=== PATIENT | male | born 1960 | race Caucasian/White ===

== ENCOUNTER 2024-03-07 13:32 | Emergency (ER) | payer OTHER, SELFPAY ==
--- NOTE | ~2024-03-07 | CT_ITS ---
History: Left temporal headache PROCEDURE: CT head without contrast. COMPARISON: None TECHNIQUE: Axial imaging of the head performed from the skull base to the vertex without IV contrast. Sagittal a nd coronal reformations obtained. DLP: 681 mGy-cm FINDINGS: The ventricles are normal in size, shape and position. There is no mass, mass effect or midline shift. There is no abnormal extra-axial fluid collection or intracranial hemorrhage. Visualized paranasal sinuses are clear. The mastoid air cells are well aerated. No acute displaced fractures within the overlying cranium. Impression: No acute intracranial hemorrhage or suspicious mass effect. Reviewed, dictated and finalized at location A. SWARE ENGRAVER Impression: No acute intracranial hemorrhage or suspicious mass effect.
[2024-03-07 13:43] VITALS: BP 132/82; PULSE 89; RESP 16; TEMP 36.7; O2SAT 97
--- NOTE | 2024-03-07 14:55 | PC.NURSE ---
Pt. refusing a hospital gown at this time.
--- NOTE | 2024-03-07 14:59 | ED_ITS ---
HPI - Headache General Chief Complaint: Headache Stated Complaint: HEADACHE-PATIENT HAS TEMPORAL ARTERITIS Time Seen by Provider: 03/07/24 14:47 Source: patient Mode of arrival: ambulatory Limitations: no limitations History of Present Illness HPI Narrative: Patient is a 63 y/o male who presents to the ED with c/o SQUIRES. Patient reports having a left-sided temporal headache for the last 5 days. States it is a very dull aching. Has been intermittent. Has not tried anything for the pain. States his sister is concerned he may have temporal arteritis. He denies previously being diagnosed with this. Denies significant other symptoms, dizziness, lightheadedness, nausea, vomiting, vision changes. Does admit to slight photophobia and phonophobia. Denies focal weakness or numbness. Denies syncope. Related Data Allergies Allergy/AdvReac Type Severity Reaction Status Date / Time Iodinated Contrast Media Allergy Intermediate Flushing Verified 03/07/24 13:35 Review of Systems 2 Review of Systems: All systems reviewed & are unremarkable except as noted in HPI. All systems reviewed & are unremarkable except as noted in HPI and below Exam 2 Narrative: GENERAL: Well appearing, obese with BMI of 33.5, non-toxic, in no acute distress. HEAD: Normocephalic, atraumatic. EYES: PERRL/EOMI, conjunctiva clear. No nystagmus NECK: Normal ROM, supple, no meningeal signs. RESPIRATORY: Airway patent, respirations nonlabored. Clear to auscultation bilaterally, no rales, rhonchi, wheezing. CARDIOVASCULAR: Regular rate and rhythm without murmurs, rubs, or gallops. MUSCULOSKELETAL: Moves all extremities. No gross deformities. SKIN: Warm, dry, normal color. NEURO: A&O X3. Speech clear. Cranial nerves II-XII grossly intact. Steady gait. No ataxic movements. Strength 5/5 in upper extremities bilaterally. No pronator drift. No focal deficits. PSYCHIATRIC: Appropriate mood and affect. Normal interaction. Course Vital Signs Vital signs: Vital Signs Temperature 98.0 F 03/07/24 13:43 Pulse Rate 89 03/07/24 13:43 Respiratory Rate 16 03/07/24 13:43 Blood Pressure 132/82 03/07/24 13:43 Pulse Oximetry 97 03/07/24 13:43 Oxygen Delivery Room Air 03/07/24 13:43 Temperature 98.0 F 03/07/24 13:43 Pulse Rate 62 03/07/24 17:27 Respiratory Rate 16 03/07/24 17:27 Blood Pressure 116/67 03/07/24 17:27 Pulse Oximetry 96 03/07/24 17:27 Oxygen Delivery Room Air 03/07/24 13:43 MDM - Headache MDM Narrative Medical decision making narrative: Patient presented to ED with 5 day history of left-sided temporal headache. Vital signs are stable upon arrival. Patient is in no acute distress. Neurologically intact. No focal deficits appreciated on exam. Patient states he is concerned for temporal arteritis. CT brain was obtained and negative. No intracranial pathology. Laboratory studies are otherwise unremarkable. Normal CRP. Normal ESR. Very low suspicion for temporal arteritis given findings. Patient given migraine cocktail in the ED. On re-evaluation, he is feeling improved. Discussed overall reassuring w/u. Feel he is safe for d/c home. Discussed continued management of headaches at home. Recommended close f/u with PCP for further evaluation. Given strict return precautions. He agrees with plan. Discharged in stable condition. Medical Records Attestation: I reviewed the patient's medical records. Lab Data Attestation: I reviewed the patient's lab results. 03/07/24 15:41 03/07/24 15:41 Labs: Lab Results 03/07/24 Range/Units 15:41 WBC 5.0 (4.5-10.0) K/mm3 RBC 4.98 (4.6-6.20) M/mm3 Hgb 16.1 (14.0-18.0) g/dL Hct 46.1 (42.0-52.0) % MCV 92.6 (80-100) fl MCH 32.3 (26-34) pg MCHC 34.9 (32-36) g/dl RDW 12.9 (11.5-14.5) % Plt Count 215 (150-375) k/mm3 MPV 10.7 H (7.4-10.4) fl Immature Gran % (Auto) 0.4 (0-0.5) % Neut % (Auto) 53.1 (45.5-73.1) % Lymph % (Auto) 37.1 (18.3-44.2) % Ness % (Auto) 7.6 (2.6-8.5) % Eos % (Auto) 1.4 (0-4.4) % Baso % (Auto) 0.4 (0.2-1.2) % Lymph # (Auto) 1.86 (0.9-3.2) K/mm3 Ness # (Auto) 0.4 (0.1-0.6) K/mm3 Eos # (Auto) 0.1 (0-0.3) K/mm3 Baso # (Auto) 0.0 (0.0-0.1) K/mm3 Abs Immat Gran (auto) 0.02 (0.00-0.031) K/mm3 Absolute Neuts (auto) 2.7 (1.3-6.7) K/mm3 Absolute Nucleated RBC 0.000 (0.0-0.012) K/mm3 Nucleated RBC % 0.0 (0.0-0.2) % ESR 8 (0-20) mm/hr Sodium 140 (137-145) mmol/L Potassium 3.7 (3.4-5.0) mmol/L Chloride 105 (98-107) mmol/L Carbon Dioxide 23 (22-30) mmol/L Anion Gap 12 (4-12) mmol/L BUN 16 (9-20) mg/dL Creatinine 0.71 (0.7-1.3) mg/dL Estim Creat Clear Calc 113 ml/min Estimated GFR > 60 (59 - ) Glucose 95 (65-110) mg/dL Calcium 9.2 (8.4-10.2) mg/dL Total Bilirubin 1.0 (0.2-1.3) mg/dL AST 25 (17-59) U/L ALT 23 (6-50) U/L Alkaline Phosphatase 59 (38-126) U/L C-Reactive Protein < 0.5 (<1.0) mg/dL Total Protein 8.0 (6.3-8.2) g/dL Albumin 4.7 (3.5-5.1) g/dL Imaging Data Attestation: I personally reviewed and interpreted this imaging study as follows: Radiologist's impression: ITS Impressions Head CT 03/07/24 15:59 Impression: No acute intracranial hemorrhage or suspicious mass effect. Discharge Plan Discharge Clinical Impression: Headache Qualifiers: Headache type: unspecified Headache chronicity pattern: acute headache I ntractability: not intractable Qualified Code(s): R51.9 - Headache, unspecified Patient Disposition: Home, Self-Care Condition: Stable Instructions: Antibiotic Form, Temporal Arteritis (ED), Acute Headache (ED) Additional Instructions: Your workup here was reassuring. Follow-up with your primary care doctor for further evaluation. Continue Tylenol and ibuprofen as needed for pain. Get plenty of rest. Stay well hydrated. Recommend low light/ low stimulus environment, limiting screen time. Return to the ED if you experience worsening or severe pain, severe dizziness, vision changes, unable to keep down food or drink, numbness or weakness of arm or leg, or any other symptoms of concern. Patient Language: [place] Follow-up/Referrals: PHYSICIAN NOT ON STAFF,NONSTAFF [Non-Staff] - Time of Disposition: 17:47
[2024-03-07] MEDS: ACETAMINOPHEN 500 MG TABLET 1000 MG PO (15:30)
[2024-03-07] MEDS: METOCLOPRAMIDE HCL INJ 10 MG/2 ML VIAL IV PUSH (15:31)
[2024-03-07] MEDS: diphenhydrAMINE HCl INJ 50 MG/ML VIAL 25 MG IV PUSH (15:31)
[2024-03-07] MEDS: SODIUM CHLORIDE 0.9% IV 1,000 ML 999 ML IV CONT (15:32)
[2024-03-07 15:57] LABS: Basophils Percent Auto 0.4 % (0.2-1.2); Eosinophils Absolute Auto 0.1 K/mm3 (0-0.3); Eosinophils Percent Auto 1.4 % (0-4.4); Hematocrit 46.1 % (42.0-52.0); Hemoglobin 16.1 g/dL (14.0-18.0); Immature Granulocyte Absolute 0.02 K/mm3 (0.00-0.031); Immature Granulocyte Percent A 0.4 % (0-0.5); Lymphocytes Absolute Auto 1.86 K/mm3 (0.9-3.2); Lymphocytes Percent Auto 37.1 % (18.3-44.2); Mean Corpuscular HGB Conc 34.9 g/dl (32-36); Mean Corpuscular Hemoglobin 32.3 pg (26-34); Mean Corpuscular Volume 92.6 fl (80-100); Mean Platelet Volume 10.7 fl (7.4-10.4); Monocytes Absolute Auto 0.4 K/mm3 (0.1-0.6); Monocytes Percent Auto 7.6 % (2.6-8.5); Neutrophils Absolute Auto 2.7 K/mm3 (1.3-6.7); Neutrophils Percent Auto 53.1 % (45.5-73.1); Platelet Count Result 215 k/mm3 (150-375); Red Blood Count 4.98 M/mm3 (4.6-6.20); Red Cell Distribution Width 12.9 % (11.5-14.5)
[2024-03-07 16:22] VITALS: BP 101/64; PULSE 64; RESP 16; O2SAT 94
[2024-03-07 16:22] LABS: Alanine Aminotransferase 23 U/L (6-50); Albumin Level 4.7 g/dL (3.5-5.1); Alkaline Phosphatase 59 U/L (38-126); Anion Gap 12 mmol/L (4-12); Aspartate Amino Transferase 25 U/L (17-59); Blood Urea Nitrogen 16 mg/dL (9-20); CRP < 0.5 mg/dL (<1.0); Calcium 9.2 mg/dL (8.4-10.2); Carbon Dioxide 23 mmol/L (22-30); Chloride 105 mmol/L (98-107); Estimated CRCL calculation 113 ml/min; Estimated Glomerular Filt Rate > 60; Glucose 95 mg/dL (65-110); Potassium 3.7 mmol/L (3.4-5.0); Sodium 140 mmol/L (137-145)
[2024-03-07 16:32] LABS: Erythrocyte Sedimentation Rate 8 mm/hr (0-20)
[2024-03-07] MEDS: dexAMETHasone SOD PHOS INJ 10 MG/ML 1 ML VIAL IV PUSH (16:49)
[2024-03-07] MEDS: KETOROLAC 30 MG/ML VIAL (*BKC) IV PUSH (16:49)
[2024-03-07 17:27] VITALS: BP 116/67; PULSE 62; RESP 16; O2SAT 96
[2024-03-07 18:00] VITALS: BP 114/74; PULSE 74; RESP 16; TEMP 36.6; O2SAT 100
--- OUTSIDE RECORDS SUMMARY | 2024-03-09 01:17 | XMS_ITS | Referral Summary ---
Author Organization [facility] [place] [address] [place] [address] Phone Care Team Providers Care Restaurant Shift Supervisor Name Role Phone Chang Cifuentes OD Unavailable [phone] Alpesh De Leon MD Unavailable [phone] Charli Holder MD Unavailable [phone] Cristhian Oliveros MD Unavailable [phone] Clemencia Tovar MD Primary Care Provider Allergies Active Allergy Reactions Criticality Noted Date Comments Iodine Flushing (skin) Low 10/20/2018 Medications ENTRESTO 24-26 mg tabletIndication s:chronic heart failure Take 1 tablet by mouth 2 (two) times a day 11 9 Active torsemide (DEMADEX) 20 mg tabletIndication s:Edema Take 1 tablet (20 mg total) by mouth daily 3 9 Active multivitamin-Ca- iron-minerals tabletIndication s:Vitamin Deficiency Prevention Take 1 tablet by mouth ammunition storekeeper before breakfast Active NON FORMULARY, FOR CLINIC ADMINISTERED MEDICATIONS ONLY, (not in database) Take 1 each by mouth once Gamma E Active carvediloL (COREG) 12.5 mg tabletIndication s:hypertension Take 1 tablet (12.5 mg total) by mouth 2 (two) times a day 0 Active potassium chloride ER 20 mEq CR tablet Take 2 tablets (40 mEq total) by mouth ammunition storekeeper before breakfast 0 Active sildenafiL (VIAGRA) 100 mg tablet Take 1 tablet (100 mg total) by mouth daily as needed 2 Active ergocalciferol (VITAMIN D) 50,000 unit capsuleIndicatio ns:Vitamin D deficiency Take 1 capsule (50,000 Units total) by mouth once a week TAKE 1 CAPSULE ONCE A WEEK FOR 12 WEEKS, THEN FOLLOW UP WITH YOUR PCP. 12 capsule 2 Active Additional Information Patient not taking.Informant: Self, Reported on 01/31/[address] (CYMBALTA) 60 mg capsuleIndicatio ns:pain Take 1 capsule (60 mg total) by mouth ammunition storekeeper before breakfast 2 Active acetaminophen 500 mg capsuleIndicatio ns:Pain Take 2 capsules (1,000 mg total) by mouth every 8 (eight) hours 90 tablet 3 Active aspirin 81 mg enteric coated tabletIndication s:Deep Vein Thrombosis Prevention Take 1 tablet (81 mg total) by mouth 2 (two) times a day 60 tablet 3 Active meloxicam (MOBIC) 7.5 mg tablet Take 1 tablet (7.5 mg total) by mouth daily 30 tablet 3 Active Additional Information Patient not taking.Reported on 09/26/2023 senna-docusate (PERICOLACE) 8.6-50 mgIndications:co nstipation Take 2 tablets by mouth 2 (two) times a day 60 tablet 3 Active Additional Information Patient not taking.Reported on 09/26/2023 pregabalin (LYRICA) 75 mg capsule Take 1 capsule (75 mg total) by mouth 2 (two) times a day for 14 days 28 capsule 3 Active Additional Information Patient not taking.Reported on 01/31/2023 traMADoL (ULTRAM) 50 mg tablet Take 1 tablet (50 mg total) by mouth every 8 (eight) hours as needed for pain 42 tablet 3 Active oxyCODONE (ROXICODONE) 5 mg immediate release tabletIndication s:Pain Take 1 tablet (5 mg total) by mouth every 4 (four) hours as needed (breakthrough pain) 30 tablet 3 Active Additional Information Patient not taking.Reported on 05/14/2022 atorvastatin (LIPITOR) 40 mg tablet Take 1 tablet (40 mg total) by mouth daily for 90 days 3 Active azithromycin (ZITHROMAX) 250 mg tablet Active furosemide (LASIX) 40 mg tablet Take 1 tablet (40 mg total) by mouth daily 4 Active cephalexin (KEFLEX) 500 mg capsule Active HYDROcodone-acet aminophen (NORCO) 5-325 mg per tablet Active levothyroxine (SYNTHROID) 175 mcg tablet Take 1 tablet (175 mcg total) by mouth daily 90 tablet 3 4 05/23/19 25 Active empagliflozin (JARDIANCE) 10 mg tablet 1 tablet (10 mg total) daily Active Active Problems Problem Noted Date Diagnosed Date Encounter for screening colonoscopy 10/05/2023 Personal history of colonic polyps 10/05/2023 Primary osteoarthritis of left knee 01/27/2022 Overview (01/27/2022): Added automatically from request for surgery [id number] Retinal scar of left eye 10/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 10/22/2021 Age-related nuclear cataract of both eyes 2021 Screen for colon cancer 03/10/2020 Overview (03/10/2020): Added automatically from request for surgery [id number] Family history of colon cancer 03/10/2020 Overview (03/10/2020): Added automatically from request for surgery [id number] Abuse of dietary supplements 03/10/2020 Overview (03/10/2020): Following supplements should be eliminated if you will possibly consider that March 10, 2020 DHEA L glutamine L arginine Gamma E complex Lactobacillus Amino 1000 Calcium citrate Probiotic 50 A triple magnesium powder Super enzymes Milk thistle extract Ascorbic acid vitamin-C Allowed supple months = multi vitamin, fish oil he states is advised by his women's ministry director, Co Q10 Hx of colonic polyps 03/10/2020 Overview (03/12/2020): Added automatically from request for surgery [id number] Hx of adenomatous colonic polyps 03/08/2020 Overview (03/08/2020): (+) Dr. 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 Thakur, [facility] Retinal tear, left 10/22/2018 Overview (10/22/2018): Status post (s/p) laser retinopexy OS 10/21/18 Assessment & Plan (11/09/2018 12:55 PM CDT): With associated vitreous hemorrhage which is clearing nicely Tears well barricaded with laser retinal detachment (RD) precautions reviewed Follow up [place] with Dr. Cruz 2 months Assessment & Plan (10/22/2018 1:13 PM CDT): Two breaks at 3 o clock with VH, surrounded 360 by laser. Anterior lesion not redemonstrated on exam today, remainder of retina attached 360 OU. Inferior retinal view poor 2/2 VH but with no breaks on prior B scan. Will monitor closely given poor visualization. Seen with Dr. Leyva. RT/RD precautions discussed with patient. Keep HOBE. Repeat DFE/TOPPER PRESS OPERATOR 11/01 in [facility] retina. Coronavirus infection 03/21/2018 Overview (02/06/2020): Hospitalized in [facility] with kidney failure heart failure intestinal blockage loss of consciousness related to this virus Immunizations Name Administration Dates Next Due Pneumococcal Polysaccharide PPV23 02/06/2020 Tdap 02/06/2020 Social History Tobacco Use Types Packs/Day Years Used Date Smoking Tobacco: Never Smokeless Tobacco: Former Snuff Quit: 02/23/2011 Tobacco Cessation:Counseling Given: Not Answered Alcohol Use Standard Drinks/Week Comments Yes 0 (1 standard drink = 0.6 oz pur e alcohol) occassional wine AUDIT-C Answer Date Recorded Q1: How often do you have a drink containing alc ohol? Monthly or less 03/09/2022 Average Number of Drinks Not on file 023 Frequency of Binge Drinking Not on file 02/15 Personal Safety Answer Date Recorded Getting School Help Needed Denies 01/29 Sex and Gender Information Value Date Recorded Sex Assigned at Not on file Legal Sex Male 7:53 PM EARLY CHILDHOOD EDUCATION SPECIALIST Gender Identity Not on file Sexual Orientation Straight 03/03/2020 9: 48 AM EARLY CHILDHOOD EDUCATION SPECIALIST Occupation Industry Job Start Date Job End Date semi retired Not on file Not on file Not on file Last Filed Vital Signs Vital Sign Reading Time Taken Comments Blood Pressure 104/63 09/26/2023 1:38 PM CDT Pulse 76 09/26/2023 1:38 PM CDT Temperature 36.6 ??C (97.8 ??F) 09/26/2023 1:38 PM CD T Respiratory Rate 18 03/10/2022 8:53 AM EARLY CHILDHOOD EDUCATION SPECIALIST Oxygen Saturation 97% 03/10/2022 8:53 AM EARLY CHILDHOOD EDUCATION SPECIALIST Inhaled Oxygen Concentration - - Weight 112.9 kg (249 lb) 09/26/2023 1:38 PM CDT Height 180.3 cm (5' 11 ) 09/26/2023 1:38 PM CDT Body Mass Index 34.73 09/26/2023 1:38 PM CDT Plan of Treatment Upcoming Encounters Date Type Department Care Team (Late st Contact Info) Description 03/28/2024 12:35 PM EARLY CHILDHOOD EDUCATION SPECIALIST Hospital Encounter [address] [address] Frank Walter MD [address] [facility] [place] [address] 03/28/2024 12:35 PM EARLY CHILDHOOD EDUCATION SPECIALIST - 03/28/2024 1:05 PM EARLY CHILDHOOD EDUCATION SPECIALIST Surgery [address] [address] Frank Walter MD [address] [facility] [place] [address] COLONOSCOPY Scheduled Procedures Name Priority Associated Diagnoses Date/Ti me COLONOSCOPY Encounter for screening colonoscopy Personal history of colonic polyps Family history of colon cancer 03/28/2024 12:35 PM EARLY CHILDHOOD EDUCATION SPECIALIST Medical Devices Implanted Type Area Occ Therapist Device Identifier Shelf Expiration Date Model / Serial / Lot [employer] Attune Cruciate Retain Cementless Knee Left 6 Component Femoral [id number] - [id number] Implanted:Qty: 1 on 03/09/2022 by Srinivas Walker MD at [facility] [employer] [id number] 08/13/2030 [id number] / / [id number] [employer] Attune Fb Tib Base Sz 6 Por [id number] - [id number] Implanted:Qty: 1 on 03/09/2022 by Srinivas Walker MD at [facility] Left: Knee [employer] 10/15/2031 [id number] / / [id number] [employer] Insert Attune Left Medial Stabilized Size 6 5mm [id number] - [id number] Implanted:Qty: 1 on 03/09/2022 by Srinivas Wakler MD at [facility] Left: Knee [employer] 09/13/2029 [id number] / / [id number] Procedures Procedure Name Priority Date/Time Associated Diagnosis Comments COLONOSCOPY 01/25/2022 7:46 AM EARLY CHILDHOOD EDUCATION SPECIALIST PSA SCREEN Routine 03/03/2020 10:54 AM EARLY CHILDHOOD EDUCATION SPECIALIST Prostate cancer screening from Last 3 Months or Most Recently Relevant to Health Maintenance Results * COLONOSCOPY (01/25/2022 7:46 AM EARLY CHILDHOOD EDUCATION SPECIALIST) Anatomical Region Laterality Modality Other Narrative Procedure Note Frank Walter MD - 01/25/2022 7:46 AM [facility] Patient Name: Yonathan Joseph Procedure Date: 01/25/2022 7:46 AM Date of : 1960 Admit Type: Outpatient Age: 61 Gender: Male Attending MD: Frank Walter M.D. [facility] 1 Note Status: Finalized Patient Profile: This is a 61 year old male. History of multiple adenoma polyps. His brother had colon cancer. Procedure: Colonoscopy Indications: Screening in patient at increased risk: Familyhistory of 1st-degree relative with colorectal cancer, Surveillance: History of numerous (> 10) adenomason last colonoscopy (< 3 yrs), Last colonoscopy: May 2020 Referring MD: Clemencia Tovar M.D. Providers: Frank Walter M.D. Impression: - The entire examined colon is normal. - Internal hemorrhoids. - No specimens collected. Recommendation: - Repeat colonoscopy in 2 years for surveillance. - Continue present medications. Medicines: Monitored Anesthesia Care Complications: No immediate complications. Estimated Blood Loss: Estimated blood loss: none. Procedure: Pre-Anesthesia Assessment: - Prior to the procedure, a History and Physicalwas performed, and patient medications and allergieswere reviewed. The patient's tolerance of previous anesthesia was also reviewed. The risks andbenefits of the procedure and the sedation options and risks were discussed with the patient. All questions were answered, and informed consent was obtained. Prior Anticoagulants: The patient has taken noanticoagulant or antiplatelet agents. ASA Grade Assessment: III -A patient with severe systemic disease. Afterreviewing the risks and benefits, the patient was deemed in satisfactory condition to undergo the procedure. The benefits, risks and alternatives of theprocedure and sedation were discussed and informed consentwas obtained. All questions were answered. Please referto the signed informed consent document in the medical record. The bowel preparation used was Miralax and bisacodyl tablets via split dose instruction. The scope was passed under direct vision. The Pediatric Colonoscope [id number]-[id number] was introducedthrough the anus and advanced to the the cecum, identifiedby appendiceal orifice and ileocecal valve. Thequality of the bowel preparation was good. Bowel prep was administered using a split dose. Findings: The perianal and digital rectal examinations were normal. The cecum appeared normal. The colon (entire examined portion) appeared normal. No polyps and no mass lesions noted. Internal hemorrhoids were found during retroflexion. The hemorrhoids were small. Electronically signed by Frank Walter M.D. Frank aWlter M.D. 01/25/2022 9:52:17 AM Number of Addenda: 0 Note Initiated On: 01/25/2022 7:46 AM Procedure Code(s): --- Professional --- 69507, Colonoscopy, flexible; diagnostic, including collection of specimen(s) by brushing or washing, when performed (separateprocedure) Diagnosis Code(s): --- Professional --- Z80.0, Family history of malignant neoplasm of digestive organs Z86.010, Personal history of colonic polyps K64.8, Other hemorrhoids CPT copyright 2020 [employer]. All rights reserved. The codes documented in this report are preliminary and upon tool and die maker level five reviewmay be revised to meet current compliance requirements. Recognized by the [employer] for promoting quality in endoscopy us Frank Walter MD ENDOSCOPY PROCEDURES Final Result * PSA screen (03/03/2020 10:54 AM EARLY CHILDHOOD EDUCATION SPECIALIST) PSA-Total 0.76 <=3.90 ng/mL SMITA GUILLERMO Comment: Interpretive Data ?AGE ? SEX ?REFERENCE INTERVAL 0 minutes-150 years ?Female ?None 0 minutes-49 years ? Male ?None ? 50-59 years ? Male ?0-3.90 ? 60-69 years ? Male ?0-5.40 ? 70-79 years ? Male ?0-6.20 ? 80-150 years ?Male ?0-6.20 Current interpretive data last revised 2018. Blood specimen (specimen) 03/03/2020 10:54 AM EARLY CHILDHOOD EDUCATION SPECIALIST 03/03/2020 6:40 PM EARLY CHILDHOOD EDUCATION SPECIALIST us Anastasiya Mueller MD LAB BLOOD ORDERABLES Final Result Performing Organization Address City/State/[facility] Co de Phone Number SMITA GUILLERMO [address] Department [place] [address] from Last 3 Months or Most Recently Relevant to Health Maintenance Insurance [employer] WILLIE [address] [place] HMO REF [place] [id number] MEDICARE SOLUTIONS Advance Directives For more information, please contact: [phone] Documents on File Type Date Recorded Patient Manipulator Operator Expl anation ADVANCE DIRECTIVE 02/06/2020 POWER OF A [employer] * Full Code (Latest Code Status on File) Date Activated Date Inactivated Comments 03/09/2022 2:17 PM 03/10/2022 5:04 PM * Full Code Date Activated Date Inactivated Comments 01/25/2022 8:07 AM 01/25/2022 2:37 PM * Full Code Date Activated Date Inactivated Comments 01/25/2022 8:07 AM 01/25/2022 8:07 AM * Full Code Date Activated Date Inactivated Comments 06/02/2020 11:45 AM 06/02/2020 6:56 PM Care Teams Restaurant Shift Supervisor Relationship Specialty Start Date End Date Clemencia Tovar MD [address] [place] [address] [address] EN[address] [place], [place] [address] [address] PCP - General Internal Medicine 03/05/21 Chang Cifuentes, OD Referring Physician Supervisor Dried Yeast 10/20/18 Alpesh De Leon MD [address] [place] [address] [address] EN[address] [place] [id number] Referring Physician Cardiovascular Disease 03/20/18 Charli Holder MD [address] ENRI[address] [place] [id number] Surgeon Orthopedic Surgery 02/06/20 Cristhian Oliveros MD [address] [place] [address] [address] [place] [address] Referring Physician Cardiothoracic Surgery 02/06/20
--- OUTSIDE RECORDS SUMMARY | 2024-03-09 01:17 | XMS_ITS | Encounter Summary ---
[facility] [address] [place] [address] Phone Care Team Providers Care Fire Claims Adjuster Name Role Phone No, Physician Primary Care Provider Anastasiya Mueller MD Primary Care Provider [phone] No, Physician Unavailable Chang Cifuentes OD Unavailable [phone] Alpesh De Leon MD Unavailable [phone] Charli Holder MD Unavailable [phone] Cristhian Oliveros MD Unavailable [phone] Clemencia Tovar MD Primary Care Provider [phone] Encounter Details Date Type Department Care Team (Late st Contact Info) Description 02/25/2017 Orders Only [facility] [address] [place] [address] Scanning, Provider Social History Tobacco Use Types Packs/Day Years Used Date Smoking Tobacco: Never Assessed Sex and Gender Information Value Date Recorded Sex Assigned at Not on file Legal Sex Male 7:53 PM MATTING PRESS TENDER Gender Identity Not on file Sexual Orientation Straight 03/03/2020 9: 48 AM MATTING PRESS TENDER documented as of this encounter Plan of Treatment Upcoming Encounters Date Type Department Care Team (Late st Contact Info) Description 03/28/2024 12:35 PM MATTING PRESS TENDER Hospital Encounter [facility] [address] [place] [address] Frank Walter MD [address] [place] [id number] 03/28/2024 12:35 PM MATTING PRESS TENDER - 03/28/2024 1:05 PM MATTING PRESS TENDER Surgery [facility] [address] [place] [address] Frank Walter MD [address] [place] [address] [address] [place] [address] COLONOSCOPY Scheduled Procedures Name Priority Associated Diagnoses Date/Ti me COLONOSCOPY Encounter for screening colonoscopy Personal history of colonic polyps Family history of colon cancer 03/28/2024 12:35 PM MATTING PRESS TENDER documented as of this encounter Procedures Procedure Name Priority Date/Time Associated Diagnosis Comments GI - RESULT 02/25/2017 documented in this encounter Results * GI - RESULT (02/25/2017) Anatomical Region Laterality Modality Other us Provider Scanning Final Result documented in this encounter Visit Diagnoses Not on filedocumented in this encounter Care Teams Fire Claims Adjuster Relationship Specialty Start Date End Date No, Physician PCP - General 10/20/18 12/19/19 Anastasiya Mueller MD PCP - General Internal Medicine 12/20/19 03/04/21 Clemencia Tovar MD [address] [place] [address] DR [address] [facility] [place] [address] PCP - General Internal Medicine 03/05/21 No, Physician 12/20/19 02/05/20 Chang Cifuentes, RUKHSANA Referring Physician Water Plant Pump Operator 10/20/18 Alpesh De Leon MD [address] [place] [address] MARY MARTINEZ [id number] Referring Physician Cardiovascular Disease 03/20/18 Charli Holder MD [address] [place] [id number] Surgeon Orthopedic Surgery 02/06/20 Cristhian Oliveros MD [address] [place] [id number] Referring Physician Cardiothoracic Surgery 02/06/20 documented as of this encounter
--- OUTSIDE RECORDS SUMMARY | 2024-03-09 01:17 | XMS_ITS | Clinical Summary ---
Author Organization [facility] Address [address] [place] [address] Phone Care Team Providers Care Clinical Account Manager Name Role Phone PATRICK ALBA DO [phone] Reason for Visit and Chief Complaint The Chief Complaint is: pt is here after finding a tick on the lower right side of his back , was able to remove the whole tick but left a good size welp and he is wondering if he needs some abx Problems Includes: Problems addressed during this encounter and other active Problems No Active Problems Plan of Treatment - Return to the clinic if condition worsens or new symptoms arise - Last Documented On 06/06/2022 5:31PM ; [facility] - Go to the emergency room if condition worsens - Last Documented On 06/06/2022 5:31PM ; [facility] - Disposition Discussed etiology and course of atopic dermatitis. Discussed limiting bathing and using oily soaps. Also discussed need for lubrication of skin on a regular basis, with intermittent use of topical steroids or topical immune modulator creams - Last Documented On 06/06/2022 5:31PM ; [facility] - Follow-up visit as needed with an office visit. - Last Documented On 06/06/2022 5:31PM ; [facility] Instructions to patient Go to the emergency room if condition worsens Last Documented On 3 5:25PM ; [facility] Watch for signs/symptoms of infection, return to the clinic if seen Last Documented On 3 5:25PM ; [facility] Assessments Includes: Assessments from this encounter Findings - Cellulitis of the abdominal wall - Last Documented On 06/06/2022 5:31PM ; [facility] Instructions Includes: Instructions from this encounter Instructions to patient Go to the emergency room if condition worsens Last Documented On 3 5:25PM ; [facility] Watch for signs/symptoms of infection, return to the clinic if seen Last Documented On 3 5:25PM ; [facility] Medical Equipment - Implanted Devices Includes: Current Devices No Medical Equipment Recorded Medications Includes: Medications discussed during this encounter and other current Medications New / Renewed during this visit CATALINA NAJERA on 06/06/2022 Doxycycline Hyclate 100 MG Oral Capsule Provider: CATALINA NAJERA 14 day supply: 28 capsule, 0 refills Diagnosis: Cellulitis of trunk, unspecified 1 CAPSULE TWO TIMES A DAY [facility] [address] [place] [address], [id number] - Last Documented On 3 5:29PM By CATALINA NAJERA ; [facility] Medications Administered Includes: Administered Medications from this encounter No Administered Medications Recorded Vital Signs Includes: Vital Signs from this encounter Vital Name 06/06/2022 04:59P Blood Pressure Sitting (mmHg) 126/688 Pulse Rate-Sitting (bpm) 86 Temp-Oral (F) 98.4 Weight (lb) 245 Oxygen Saturation (%) 95 Last Documented: On 06/06/2022 5:01PM ; [facility] Results Includes: Results discussed during this encounter No Results Recorded For Specified Dates History of Present Illness Includes: History of Present Illness from this encounter PURNIMA BABB is a 61 year old male. Source of patient information was patient ? Allergy list reviewed ? Medication list reviewed ? Medication list reviewed - No fever - No chills - No headache - No sinus pain - No neck pain - No difficulty closing eye - No bilateral earache - No hoarseness - No sore throat - No feeling of tightness in the throat - No vomiting - No abdominal pain - No diarrhea - Red rash pt to clinic for a tick bite on the right side of abdomen he is not sure how long it had been on there states it was small his sister helped him pull it out Social History Description Last Updated Tobacco non-user 06/06/2022 Last Documented On 3 5:31PM ; [facility] Smoking Status Unknown Procedures and Surgical History Includes: Procedures from this encounter Procedures Code Diagnosis Performing Provider Service L ocation Service Date the options include close observation Last Documented On 3 5:25PM ; [facility] watch for signs/symptoms of infection, r eturn to the clinic if seen Last Documented On 3 5:25PM ; [facility] Pt to use prescription as ordered. Purpo se of and use of medication discussed.~ Last Documented On 3 5:25PM ; [facility] plan of care reviewed and agreed to by t he patient Last Documented On 3 5:24PM ; [facility] review of medications documented [id number] Last Documented On 3 5:01PM ; [facility] Clinical summary provided to patient Last Documented On 3 5:25PM ; [facility] Medical History Includes: Medical History addressed during this encounter No Medical History Recorded Family History Includes: Family History addressed during this encounter No Family History Recorded Review of Systems Includes: Review of Systems from this encounter Systemic: Generalized pain. No edema. Head: No headache. Eyes: No vision problems. Cardiovascular: No chest pain or discomfort. Pulmonary: No shortness of breath. Gastrointestinal: No nausea and no abdominal pain. Neurological: No dizziness and no ataxia. Psychological: No fear of falling. Skin: Red rash. Past Medical: No fall in the past 6 months. Mental Status Includes: Mental Status from this encounter No Mental Status Recorded Functional Status Includes: Functional Status from this encounter No Functional Status Recorded Physical Exam Includes: Physical Exam from this encounter Allergies Includes: Active Allergies No Known Allergies Encounters Encounter Provider Location Date Check-In Time Check-Out Time Diagnosis WALK IN PATIENT - ESTABLISHED PT CATALINA NAJERA [facility] 06/07/19 23 4:52PM 5:20PM Cellulitis of the Abdominal Wall Insurance Includes: Active Insurance Policies Plan Name Member ID Group # Subscriber Relationship Effect michel Dates 1 - [facility] [id number] TIARA Connors f Clinical Notes Includes: Clinical Notes from this encounter * Progress note Date Encounter Last Documented by 06/06/2022 WALK IN PATIENT - ESTABLISHED PT Last documented on 06/06/2022; 5:31 PM, CATALINA NAJERA; [facility] Active Problems & Conditions - No Active Problems Chief Complaint The Chief Complaint is: Pt is here after finding a tick on the lower right side of his back , was able to remove the whole tick but left a good size welp and he is wondering if he needs some abx. History of Present Illness TIARA BABB is a 61 year old male. Source of patient information was patient - Allergy list reviewed - Medication list reviewed - Medication list reviewed - No fever - No chills - No headache - No sinus pain - No neck pain - No difficulty closing eye - No bilateral earache - No hoarseness - No sore throat - No feeling of tightness in the throat - No vomiting - No abdominal pain - No diarrhea - Red rash pt to clinic for a tick bite on the right side of abdomen he is not sure how long it had been on there states it was small his sister helped him pull it out Social History Tobacco use: Tobacco non-user. Allergies - No Known Allergies Review Of Systems Systemic: Generalized pain. No edema. Head: No headache. Eyes: No vision problems. Cardiovascular: No chest pain or discomfort. Pulmonary: No shortness of breath. Gastrointestinal: No nausea and no abdominal pain. Neurological: No dizziness and no ataxia. Psychological: No fear of falling. Skin: Red rash. Past Medical: No fall in the past 6 months. Physical Findings - Vitals taken 06/06/2022 04:59 pm BP-Sitting 126/688 mmHg Pulse Rate-Sitting 86 bpm Temp-Oral 98.4 F Weight 245 lbs Oxygen Saturation 95 % General Appearance: - Alert. - Not acutely ill. Nose: General/bilateral: Discharge: - No nasal discharge. Lungs: - Clear to auscultation. Cardiovascular: Heart Sounds: - S1 normal. - S2 normal. Skin: - Showed erythema raised erythemic lesion to right trunk no drainage. Assessment - Cellulitis of the abdominal wall Therapy - The options include close observation. - Watch for signs/symptoms of infection, return to the clinic if seen. - Clinical summary provided to patient. - Plan of care reviewed and agreed to by the patient. Pt to use prescription as ordered. Purpose of and use of medication discussed. . Discussed Finish full prescription of antibiotics. Drink 8-8oz glasses of water a day. Tylenol or Motrin for pain/fever. If diarrhea develops please eat yogurt daily and BRAT diet Warm soaks to area twice a day. Plan StartCited - Cellulitis of trunk, unspecified Doxycycline Hyclate 100 MG capsule 1 CAPSULE TWO TIMES A DAY, 14 days, 0 refills EndCited - Return to the clinic if condition worsens or new symptoms arise - Go to the emergency room if condition worsens - Disposition Discussed etiology and course of atopic dermatitis. Discussed limiting bathing and using oily soaps. Also discussed need for lubrication of skin on a regular basis, with intermittent use of topical steroids or topical immune modulator creams - Follow-up visit as needed with an office visit. Practice Management Review of medications documented. Health Reminders - Assess Tobacco Use satisfied 06/06/2022.
--- OUTSIDE RECORDS SUMMARY | 2024-03-09 01:17 | XMS_ITS | Clinical Summary ---
Author Organization [facility] Address [address] [place] [address] Phone Care Team Providers Care Bale Opener Name Role Phone PATRICK ALBA DO [phone] Reason for Visit and Chief Complaint CONSULTATION - NEW PATIENT Problems Includes: Problems addressed during this encounter and other active Problems No Active Problems Plan of Treatment IV hydration RUQ sonogram - if normal would start full liquid diet and if tolerated advance. - Last Documented On 04/29/2022 10:07AM ; [facility] Assessments Includes: Assessments from this encounter Findings Acute Gastritis with dehydration. - Last Documented On 04/29/2022 10:07AM ; [facility] Medical Equipment - Implanted Devices Includes: Current Devices No Medical Equipment Recorded Medications Includes: Medications discussed during this encounter and other current Medications Current Medications (continue as prescribed) Doxycycline Hyclate 100 MG Oral Capsule 06/06/2022 Provider: CATALINA NAJERA Diagnosis: Cellulitis of tr unk, unspecified 1 CAPSULE TWO TIMES A DAY Last Documented On 3 5:29PM By CATALINA NAJERA ; [facility] Medications Administered Includes: Administered Medications from this encounter No Administered Medications Recorded Results Includes: Results discussed during this encounter No Results Recorded For Specified Dates History of Present Illness Includes: History of Present Illness from this encounter PURNIMA BABB is a 61 year old male. 61 year old male who presented to the ER last evening. He states that he was well yesterday morning and ate breakfast and went to the wellness center and worked out. After that, he went to [employer] and ate a day old hamburger. He subsequently developed severe diffuse abdominal pain associated with nausea and vomiting. He presented to the ER. A CT scan was done which was essentially unremarkable. His WBC was normal. He developed hypotension and was admitted for this. He is seen this AM in the ICU and has no complaints of abdominal pain and no further nausea. - No constipation. Social History No Social History Recorded - Smoking Status Unknown Procedures and Surgical History Includes: Procedures from this encounter Procedures Code Diagnosis Performing Provider Service L ocation Service Date reviewed CT scan of abdomen Reviewed with the radiologist Last Documented On 3 10:04AM ; [facility] Medical History Includes: Medical History addressed during this encounter No Medical History Recorded Family History Includes: Family History addressed during this encounter No Family History Recorded Review of Systems Includes: Review of Systems from this encounter Systemic: No fever and no chills. Cardiovascular: No chest pain or discomfort. Pulmonary: No dyspnea. Gastrointestinal: No anorexia. No dysphagia. Nausea. No jaundice and no hematochezia. No diarrhea. Genitourinary: No dysuria. Mental Status Includes: Mental Status from this encounter No Mental Status Recorded Functional Status Includes: Functional Status from this encounter No Functional Status Recorded Physical Exam Includes: Physical Exam from this encounter Allergies Includes: Active Allergies No Known Allergies Encounters Encounter Provider Location Date Check-In Time Check-Out Time Diagnosis CONSULTATION - NEW PATIENT ADELFO SANCHEZ DO [facility] 04/30/19 23 9:58AM 11:59PM Assessment [use For S.o.a.p. Note Free Text] Insurance Includes: Active Insurance Policies Plan Name Member ID Group # Subscriber Relationship Effect michel Dates 1 - [facility] [id number] TIARA BABB Dory f Clinical Notes Includes: Clinical Notes from this encounter * Progress note Date Encounter Last Documented by 04/29/2022 CONSULTATION - NEW PATIENT Last documented on 04/29/2022; 10:07 AM, ADELFO SANCHEZ DO; [facility] History of Present Illness TIARA BABB is a 61 year old male. 61 year old male who presented to the ER last evening. He states that he was well yesterday morning and ate breakfast and went to the wellness center and worked out. After that, he went to [employer] and ate a day old hamburger. He subsequently developed severe diffuse abdominal pain associated with nausea and vomiting. He presented to the ER. A CT scan was done which was essentially unremarkable. His WBC was normal. He developed hypotension and was admitted for this. He is seen this AM in the ICU and has no complaints of abdominal pain and no further nausea. - No constipation. Review Of Systems Systemic: No fever and no chills. Cardiovascular: No chest pain or discomfort. Pulmonary: No dyspnea. Gastrointestinal: No anorexia. No dysphagia. Nausea. No jaundice and no hematochezia. No diarrhea. Genitourinary: No dysuria. Physical Findings Standard Measurements: - Patient was observed to be obese. General Appearance: - Well developed. - In no acute distress. Lungs: - Clear to auscultation. Cardiovascular: Heart Rate And Rhythm: ? Normal. Abdomen: Auscultation: ? Bowel sounds were normal. Palpation: ? Abdominal non-tender. ? No mass was palpated in the abdomen. Tests Imaging: CT Scan Of Abdomen: Reviewed CT scan of abdomen Reviewed with the radiologist. Assessment Acute Gastritis with dehydration. Plan IV hydration RUQ sonogram - if normal would start full liquid diet and if tolerated advance.
--- OUTSIDE RECORDS SUMMARY | 2024-03-09 01:17 | XMS_ITS ---
Care Plan - [facility] Created on: March 09, 2024 TIARA BABB : 1960 Sex: Male Author Organization [facility] Address [address] [place] [address] Phone Care Team Providers Care Location Director Name Role Phone PATRICK ALBA DO [phone]
--- OUTSIDE RECORDS SUMMARY | 2024-03-09 01:17 | XMS_ITS | Clinical Summary ---
Author Organization [facility] [address] [place] [address] Phone Care Team Providers Care Military Pay Technician Name Role Phone Chang Cifuentes OD Unavailable [phone] Alpesh De Leon MD Unavailable [phone] Charli Holder MD Unavailable [phone] Cristhian Oliveros MD Unavailable [phone] Clemencia Tovar MD Primary Care Provider [phone] Allergies Active Allergy Reactions Criticality Noted Date Comments Iodine Flushing (skin) Low 10/20/2018 Medications ENTRESTO 24-26 mg tabletIndication s:chronic heart failure Take 1 tablet by mouth 2 (two) times a day 11 9 Active torsemide (DEMADEX) 20 mg tabletIndication s:Edema Take 1 tablet (20 mg total) by mouth daily 3 9 Active multivitamin-Ca- iron-minerals tabletIndication s:Vitamin Deficiency Prevention Take 1 tablet by mouth jewel supervisor before breakfast Active NON FORMULARY, FOR CLINIC ADMINISTERED MEDICATIONS ONLY, (not in database) Take 1 each by mouth once Gamma E Active carvediloL (COREG) 12.5 mg tabletIndication s:hypertension Take 1 tablet (12.5 mg total) by mouth 2 (two) times a day 0 Active potassium chloride ER 20 mEq CR tablet Take 2 tablets (40 mEq total) by mouth jewel supervisor before breakfast 0 Active sildenafiL (VIAGRA) 100 [...] 1 capsule (60 mg total) by mouth jewel supervisor before breakfast 2 Active acetaminophen 500 mg [...] (01/27/2022): Added automatically from request for surgery [id number] Retinal scar of left eye 10/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 10/22/2021 Age-related nuclear cataract of both eyes 2021 Screen for colon cancer 03/10/2020 Overview (03/10/2020): Added automatically from request for surgery [id number] Family history of colon cancer 03/10/2020 Overview (03/10/2020): Added automatically from request for surgery [id number] Abuse of dietary supplements 03/10/2020 Overview (03/10/2020): Following supplements should be eliminated if you will possibly consider that March 10, 2020 DHEA L glutamine L arginine Gamma E complex Lactobacillus Amino 1000 Calcium citrate Probiotic 50 A triple magnesium powder Super enzymes Milk thistle extract Ascorbic acid vitamin-C Allowed supple months = multi vitamin, fish oil 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 Smith in [facility] polyps x3 tubular adenoma due in 3 [...] thyroidectomy radiation therapy June 2015 Dr. Thakur, [facility] Retinal tear, left 10/22/2018 Overview (10/22/2018): Status [...] precautions discussed with patient. Keep HOBE. Repeat DFE/DIRECTOR DENTAL SERVICES 11/01 in [place]. Coronavirus infection 03/21/2018 Overview (02/06/2020): Hospitalized in [facility] with kidney failure heart failure intestinal blockage loss of consciousness related to this virus Immunizations Name Administration Dates Next Due Pneumococcal Polysaccharide PPV23 02/06/2020 Tdap 02/06/2020 Surgical History Surgery Date Site/Laterality Comments [facility] RETINAL DTCHMNT W/O DRG PHOTOCOAGULATION 10/21/2018 Retinal detachment surgery MENISCUS SURGERY 02/14/1990 - 03/16/[address] Holder CORONARY ARTERY BYPASS GRAFT 12/15/2018 - 01/13/2019 Dr. Glen Oliveros: Four-vessel bypass [facility] REPLACEMENT TOTAL HIP LATERA L POSITION 12/15/2013 - 01/13/[address] Stone, [facility] COLONOSCOPY 02/25/2017 (+) Dr. Smith in [facility] polyps x3 tubular adenoma due in 3 years RETINAL LASER PROCEDURE 10/21/2018 Left Olivier Cruz COLONOSCOPY 06/02/2020 (+) Dr. Walter polyps x5 tubular adenoma x4 recheck 1 year FLUORO GUIDED INJECTION SHOULDER RIGHT 10/12/2021 Right JOINT REPLACEMENT 12/28 Medical History Medical History Date Comments CHF (congestive heart failur e) (CMS/HCC) (HCC) Retinal tear, left 10/22/2018 Status post ( s/p) laser retinopexy OS 10/21/18 Cancer (CMS/HCC) (HCC) thyroid Thyroid disease Hypertension Myocardial infarction (HCC) Arthritis Heart disease Family History Medical History Relation Name Comments Cancer Brother 1 Omer Heart attack Brother 1 Omer Prostate cancer Brother 2 from he art attack due to cancer treatments Cancer Father Carter Liver cancer Father Carter Lung cancer Father Carter smoker Father Carter Diabetes Father's Sister Heart failure Mother Inez Hypertension Mother Inez smoker Mother Inez Colon cancer Paternal Grandfather No Known Problems Sister 1 ARDS Sister 2 staph infection Relation Name Status Comments Brother 1 Omer Alive Brother 2 Father Carter (Age 61) Father's Sister Mother Inez (Age 89) Paternal Grandfather Sister 1 Alive Sister 2 Social History Tobacco Use Types Packs/Day Years [...] on file Legal Sex Male 7:53 PM PSYCHIATRIC NP Gender Identity Not on file Sexual Orientation Straight 03/03/2020 9: 48 AM PSYCHIATRIC NP Occupation Industry Job Start Date Job End Date semi retired Not on file Not on file Not on file Obstetrics History Last Filed Vital Signs Vital Sign Reading Time Taken Comments Blood Pressure 104/63 09/26/2023 1:38 PM CDT Pulse 76 09/26/2023 1:38 PM CDT Temperature 36.6 ??C (97.8 ??F) 09/26/2023 1:38 PM CD T Respiratory Rate 18 03/10/2022 8:53 AM PSYCHIATRIC NP Oxygen Saturation 97% 03/10/2022 8:53 AM PSYCHIATRIC NP Inhaled Oxygen Concentration - - Weight 112.9 kg (249 lb) 09/26/2023 1:38 PM CDT Height 180.3 cm (5' 11 ) 09/26/2023 1:38 PM CDT Body Mass Index 34.73 09/26/2023 1:38 PM CDT Plan of Treatment Upcoming Encounters Date Type Department Care Team (Late st Contact Info) Description 03/28/2024 12:35 PM PSYCHIATRIC NP Hospital Encounter [address] [address] Frank Walter MD [address] [place] [address] [place] [address] 03/28/2024 12:35 PM PSYCHIATRIC NP - 03/28/2024 1:05 PM PSYCHIATRIC NP Surgery [address] [address] Frank Walter MD [address] [place] [address] [place] [address] COLONOSCOPY Scheduled Procedures Name Priority Associated Diagnoses Date/Ti me COLONOSCOPY Encounter for screening colonoscopy Personal history of colonic polyps Family history of colon cancer 03/28/2024 12:35 PM PSYCHIATRIC NP Health Maintenance Due Date Last Done Comments Depression Screening 1960 Hepatitis C Screening 1960 Hepatitis B Screening 12/07/1979 Regular Well Visit/Exam 18-64 12/07/1979 Zoster Vaccine (1 of 2) 12/07/2011 Pneumococcal vaccine <65 (2 of 2 - PCV) 02/05/2021 1 04/08/2019 Prostate Cancer Screening-PSA 03/03/2022 03/03/2020 Influenza Vaccine (#1) 2023 DTaP/Tdap/Td Vaccine (2 - Td or Tdap) 02/05/2030 Colon Cancer Screening-Colonoscopy 01/26/20322021, 06/02/2020 Colon Cancer Screening-CT Colonography Discontinued , 06/02/2020 Colon Cancer Screening-DNA Stool Discontinued 01/26/20 22, 06/02/2020 Colon Cancer Screening-FIT Discontinued 01/25/2022, Colon Cancer Screening-Sigmoidoscopy Discontinued 01/14, 06/02/2020 Medical Devices Implanted Type Area Career Technical Education Teacher Device Identifier Shelf Expiration Date Model / Serial / Lot [employer] Attune Cruciate Retain Cementless Knee Left 6 Component Femoral [id number] - [id number] Implanted:Qty: 1 on 03/09/2022 by Srinivas Walker MD at [facility] [employer] [id number] 08/13/2030 [id number] / / [id number] [employer] Attune Fb Tib Base Sz 6 Por [id number] - [id number] Implanted:Qty: 1 on 03/09/2022 by Srinivas Walker MD at [facility] Left: Knee [employer] 10/15/2031 [id number] / / [id number] [employer] Insert Attune Left Medial Stabilized Size 6 5mm [id number] - [id number] Implanted:Qty: 1 on 03/09/2022 by Srinivas Walker MD at [facility] Left: Knee [employer] 09/13/2029 [id number] / / [id number] Procedures Procedure Name Priority Date/Time Associated Diagnosis Comments COLONOSCOPY 01/25/2022 7:46 AM PSYCHIATRIC NP PSA SCREEN Routine 03/03/2020 10:54 AM PSYCHIATRIC NP Prostate cancer screening from Last 3 Months or Most Recently Relevant to Health Maintenance Results * COLONOSCOPY (01/25/2022 7:46 AM PSYCHIATRIC NP) Anatomical Region Laterality Modality Other Narrative Procedure Note Frank Walter MD - 01/25/2022 7:[address] [facility] Patient Name: Yonathan Joseph Procedure Date: 01/25/2022 7:46 AM Date of : 1960 Admit Type: Outpatient Age: 61 Gender: Male Attending MD: Frank Walter M.D. Room: [facility] ENDOSCOPY ROOM 1 Note Status: Finalized [...] under direct vision. The Pediatric Colonoscope [id number]-H190L [id number] was introducedthrough the anus and advanced to [...] Electronically signed by Frank Walter M.D. Frank Walter M.D. 01/25/2022 9:52:17 AM Number of Addenda: 0 Note Initiated On: 01/25/2022 7:46 AM Procedure Code(s): --- Professional --- 01035, Colonoscopy, flexible; diagnostic, including collection of specimen(s) by brushing or washing, when performed (separateprocedure) Diagnosis Code(s): --- Professional --- Z80.0, Family history of malignant neoplasm of digestive organs Z86.010, Personal history of colonic polyps K64.8, Other hemorrhoids CPT copyright 2020 [employer]. All rights reserved. The codes documented in this report are preliminary and upon bus matron reviewmay be revised to meet current compliance requirements. Recognized by the [employer] for promoting quality in endoscopy us Frank Walter MD ENDOSCOPY PROCEDURES Final Result * PSA screen (03/03/2020 10:54 AM PSYCHIATRIC NP) PSA-Total 0.76 <=3.90 ng/mL SM[facility] GUILLERMO Comment: Interpretive Data ?AGE ? SEX ?REFERENCE INTERVAL 0 minutes-150 years ?Female ?None 0 minutes-49 years ? Male ?None ? 50-59 years ? Male ?0-3.90 ? 60-69 years ? Male ?0-5.40 ? 70-79 years ? Male ?0-6.20 ? 80-150 years ?Male ?0-6.20 Current interpretive data last revised 2018. Blood specimen (specimen) 03/03/2020 10:54 AM PSYCHIATRIC NP 03/03/2020 6:40 PM PSYCHIATRIC NP us Anastasiya Mueller MD LAB BLOOD ORDERABLES Final Result SMITA GUILLERMO [address] Department [place] [address] from Last 3 Months or Most Recently Relevant to Health Maintenance Insurance [place] [id number] MED[employer]ARE SOLUTIONS [address] [place]CR HMO REF [place] [address] MEDICARE SOLUTIONS Advance Directives For more information, please contact: [phone] Documents on File Type Date Recorded Patient Leaf Stamper Expl anation ADVANCE DIRECTIVE 02/06/2020 POWER OF [...] 11:45 AM 06/02/2020 6:56 PM Care Teams Military Pay Technician Relationship Specialty Start Date End Date Clemencia Tovar MD [address] [place] [address] [address] [place] [address] PCP - General Internal Medicine 03/05/21 Chang Cifuentes, OD Referring Physician Batter Mixer Helper 10/20/18 Alpesh De Leon MD [address] [place] [address] [address] [place] [address] Referring Physician Cardiovascular Disease 03/20/18 Charli Holder MD [address] [place] [address] Surgeon Orthopedic Surgery 02/06/20 Cristhian Oliveros MD [address] [place] [address] [address] [place] [address] Referring Physician Cardiothoracic Surgery 02/06/20
--- OUTSIDE RECORDS SUMMARY | 2024-03-09 01:17 | XMS_ITS | Encounter Summary ---
Author Organization [facility] Address [address] [place] [address] Phone Care Team Providers Care Carbon Accountant Name Role Phone Anastasiya Mueller MD Primary Care Provider [phone] No, Physician Unavailable Chang Cifuentes OD Unavailable [phone] Alpesh De Leon MD Unavailable [phone] Charli Holder MD Unavailable [phone] Cristhian Oliveros MD Unavailable [phone] Clemencia Tovar MD Primary Care Provider [phone] Encounter Details Date Type Department Care Team (Late st Contact Info) Description 01/30/2020 Orders Only [facility] [address] [place] [address] Scanning, Provider Social History Tobacco Use Types Packs/Day Years Used Date Smoking Tobacco: Never Smokeless Tobacco: Never Alcohol Use Standard Drinks/Week Comments Not Currently 0 (1 standard drink = 0.6 oz pur e alcohol) Sex and Gender Information Value Date Recorded Sex Assigned at Not on file Legal Sex Male 7:53 PM PRIVACY OFFICER Gender Identity Not on file Sexual Orientation Straight 03/03/2020 9: 48 AM PRIVACY OFFICER documented as of this encounter Plan of Treatment Upcoming Encounters Date Type Department Care Team (Late st Contact Info) Description 03/28/2024 12:35 PM PRIVACY OFFICER Hospital Encounter [facility] 1 [place] [address] Frank Walter MD [address] [place] [address] [address] [place] [address] 03/28/2024 12:35 PM PRIVACY OFFICER - 03/28/2024 1:05 PM PRIVACY OFFICER Surgery [facility] 1 [place] [address] Frank Walter MD [address] [place] [address] [address] [place] [address] COLONOSCOPY Scheduled Procedures Name Priority Associated Diagnoses Date/Ti me COLONOSCOPY Encounter for screening colonoscopy Personal history of colonic polyps Family history of colon cancer 03/28/2024 12:35 PM PRIVACY OFFICER documented as of this encounter Procedures Procedure Name Priority Date/Time Associated Diagnosis Comments SCAN - LABS 01/30/2020 documented in this encounter Results * SCAN - LABS (01/30/2020) Provider Scanning Final Result documented in this encounter Visit Diagnoses Not on filedocumented in this encounter Care Teams Carbon Accountant Relationship Specialty Start Date End Date Anastasiya Mueller MD PCP - General Internal Medicine 12/20/19 03/04/21 Clemencia Tovar MD [address] [place] [address] [place] [address] PCP - General Internal Medicine 03/05/21 No, Physician 12/20/19 02/05/20 Chang Cifuentes, OD Referring Physician Mason Apprentice 10/20/18 Alpesh De Leon MD [address] [place] [address] [address] [address] Referring Physician Cardiovascular Disease 03/20/18 Charli Holder MD [address] [place] [address] Surgeon Orthopedic Surgery 02/06/20 Cristhian Oliveros MD [address] [place] [address] [place] [address] Referring Physician Cardiothoracic Surgery 02/06/20 documented as of this encounter
--- OUTSIDE RECORDS SUMMARY | 2024-03-09 01:17 | XMS_ITS ---
Author Organization [facility] Address [address] [place] [address] Phone Care Team Providers Care Director Of Global Marketing Name Role Phone PATRICK ALBA DO [phone] Problems Includes: Active, inactive, and resolved Problems No Active Problems Plan of Treatment Findings Encounter Date Go to the emergency room if condition worsens WALK IN PATIENT - ESTABLISHED PT with CATALINA ROJO [facility]- 06/06/2022 Last Documented On 3 5:31PM ; [facility] Ordered disposition Discusse d etiology and course of atopic dermatitis. Discussed limiting bathing and using oily soaps. Also discussed need for lubrication of skin on a regular basis, with intermittent use of topical steroids or topical immune modulator creams WALK IN PATIENT - ESTABLISHED PT with CATALINA ROJO [facility]- 06/06/2022 Last Documented On 3 5:31PM ; [facility] Ordered follow-up visit as n eeded with an office visit. WALK IN PATIENT - ESTABLISHED PT with CATALINA ROJO [facility]- 06/06/2022 Last Documented On 3 5:31PM ; [facility] Ordered return to the clinic if condition worsens or new symptoms arise WALK IN PATIENT - ESTABLISHED PT with CATALINA ROJO [facility]- 06/06/2022 Last Documented On 3 5:31PM ; [facility] IV hydration RUQ sonogram - if normal would start full liquid diet and if tolerated advance CONSULTATION - NEW PATIENT with ADELFO SANCHEZ DO 04/29/2022 Last Documented On 3 10:07AM ; [facility] Instructions to patient Go to the emergency room if condition worsens Last Documented On 3 5:25PM ; [facility] Watch for signs/symptoms of infection, return to the clinic if seen Last Documented On 3 5:25PM ; [facility] Assessments Includes: Assessments for all patient encounters Findings Encounter Date Cellulitis of the abdominal wall WALK IN PATIENT - ESTABLISHED PT with CATALINA NAJERA 06/06/2022 Last Documented On 3 5:31PM ; [facility] Acute Gastritis with dehydration CONSULT ATION - NEW PATIENT with ADELFO Briteny SANCHEZ DO 04/29/2022 Last Documented On 3 10:07AM ; [facility] Instructions Includes: Instructions for all patient encounters Instructions to patient Go to the emergency room if condition worsens Last Documented On 3 5:25PM ; [facility] Watch for signs/symptoms of infection, return to the clinic if seen Last Documented On 3 5:25PM ; [facility] Medical Equipment - Implanted Devices Includes: Current and historical Devices No Medical Equipment Recorded Medications Includes: Current and historical Medications Current Medications (continue as prescribed) Doxycycline Hyclate 100 MG Oral Capsule 06/06/2022 Provider: CATALINA NAJERA Diagnosis: Cellulitis of tr unk, unspecified 1 CAPSULE TWO TIMES A DAY Last Documented On 3 5:29PM By CATALINA NAJERA ; [facility] Medications Administered Includes: Administered Medications in patient's chart No Administered Medications Recorded Results Includes: Results from 03/09/2023 through 03/09/2024 No Results Recorded For Specified Dates History of Present Illness History of Present Illness not supported for this document type No History of Present Illness Recorded Social History Description Last Updated Tobacco non-user 06/06/2022 Last Documented On 3 5:31PM ; [facility] Smoking Status Unknown Medical History Includes: Medical History in patient's chart No Medical History Recorded Family History Includes: Family History in patient's chart No Family History Recorded Review of Systems Review of Systems not supported for this document type No Review of Systems Recorded Mental Status No Mental Status Recorded Functional Status No Functional Status Recorded Physical Exam Physical Exam not supported for this document type No Physical Exam Recorded Allergies Includes: Active, inactive, and resolved Allergies No Known Allergies Insurance Includes: Active Insurance Policies Plan Name Member ID Group # Subscriber Relationship Effect michel Dates 1 - [facility] [id number] TIARA ariza Clinical Notes Includes: Signed Clinical Notes starting from 03/05/2022 No Clinical Notes Recorded
--- OUTSIDE RECORDS SUMMARY | 2024-03-09 01:17 | XMS_ITS | Encounter Summary ---
Author [facility] Address [address] [place] [address] Phone Care Team Providers Care Die Cutter Diamond Name Role Phone No, Physician Primary Care Provider [phone] Anastasiya Mueller MD Primary Care Provider [phone] No, Physician Unavailable Chang Cifuentes OD Unavailable [phone] Alpesh De Leon MD Unavailable [phone] Charli Holder MD Unavailable [phone] Cristhian Oliveros MD Unavailable [phone] Clemencia Tovar MD Primary Care Provider [phone] Encounter Details Date Type Department Care Team (Late st Contact Info) Description 01/14/2017 Orders Only [facility] [address] [place] [address] Scanning, Provider Social History Tobacco Use Types Packs/Day Years Used Date Smoking Tobacco: Never Assessed Sex and Gender Information Value Date Recorded Sex Assigned at Not on file Legal Sex Male 7:53 PM ORACLE DISTRIBUTION CONSULTANT Gender Identity Not on file Sexual Orientation Straight 03/03/2020 9: 48 AM ORACLE DISTRIBUTION CONSULTANT documented as of this encounter Plan of Treatment Upcoming Encounters Date Type Department Care Team (Late st Contact Info) Description 03/28/2024 12:35 PM ORACLE DISTRIBUTION CONSULTANT Hospital Encounter [facility] 1 [place] [address] Frank Walter MD [address] [place] [address] 03/28/2024 12:35 PM ORACLE DISTRIBUTION CONSULTANT - 03/28/2024 1:05 PM ORACLE DISTRIBUTION CONSULTANT Surgery [facility] 1 [place] [address] Frank Walter MD [address] [place] [address] [address] [place] [address] COLONOSCOPY Scheduled Procedures Name Priority Associated Diagnoses Date/Ti me COLONOSCOPY Encounter for screening colonoscopy Personal history of colonic polyps Family history of colon cancer 03/28/2024 12:35 PM ORACLE DISTRIBUTION CONSULTANT documented as of this encounter Procedures Procedure Name Priority Date/Time Associated Diagnosis Comments GI - RESULT 01/14/2017 documented in this encounter Results * GI - RESULT (01/14/2017) Anatomical Region Laterality Modality Other us Provider Scanning Final Result documented in this encounter Visit Diagnoses Not on filedocumented in this encounter Care Teams Die Cutter Diamond Relationship Specialty Start Date End Date No, Physician PCP - General 10/20/18 12/19/19 Anastasiya Mueller MD PCP - General Internal Medicine 12/20/19 03/04/21 Clemencia Tovar MD [address] [place] [address] [address] [facility] [place] [address] PCP - General Internal Medicine 03/05/21 No, Physician 12/20/19 02/05/20 Chang Cifuentes, RUKHSANA Referring Physician Wheel Buffer 10/20/18 Alpesh De Leon MD [address] [place] [address] [address] [address] Referring Physician Cardiovascular Disease 03/20/18 Charli Holder MD [address] [place] [address] Surgeon Orthopedic Surgery 02/06/20 Cristhian Oliveros MD [address] [place] [address] Referring Physician Cardiothoracic Surgery 02/06/20 documented as of this encounter
--- OUTSIDE RECORDS SUMMARY | 2024-03-09 01:17 | XMS_ITS | Encounter Summary ---
Author Organization [facility] Address [address] [place] [address] Care Team Providers Care Analog Ic Design Architect Name Role Phone No, Physician Primary Care Provider Anastasiya Mueller MD Primary Care Provider [phone] No, Physician Unavailable Chang Cifuentes OD Unavailable [phone] Alpesh De Leon MD Unavailable [phone] Charli Holder MD Unavailable [phone] Cristhian Oliveros MD Unavailable [phone] Clemencia Tovar MD Primary Care Provider [phone] Encounter Details Date Type Department Care Team (Latest Contact Info) Description 10/20/2018 Ophth Exam Ophthalmology Roberta Nunn MD [address] [place], [place] [id number] Social History Tobacco Use Types Packs/Day Years Used Date Smoking Tobacco: Never Alcohol Use Standard Drinks/Week Comments Not Currently 0 (1 standard drink = 0.6 oz pur e alcohol) Sex and Gender Information Value Date Recorded Sex Assigned at Not on file Legal Sex Male 7:53 PM FISHING INSTRUCTOR Gender Identity Not on file Sexual Orientation Straight 03/03/2020 9: 48 AM FISHING INSTRUCTOR documented as of this encounter Plan of Treatment Upcoming Encounters Date Type Department Care Team (Late st Contact Info) Description 03/28/2024 12:35 PM FISHING INSTRUCTOR Hospital Encounter [address] [address] Frank Walter MD [address] [place] [address] [address] [place] [address] 03/28/2024 12:35 PM FISHING INSTRUCTOR - 03/28/2024 1:05 PM FISHING INSTRUCTOR Surgery [facility] 1 [place] [address] Frank Walter MD [address] [place] [address] [address] [place] [address] COLONOSCOPY Scheduled Procedures Name Priority Associated Diagnoses Date/Ti ar COLONOSCOPY Encounter for screening colonoscopy Personal history of colonic polyps Family history of colon cancer 03/28/2024 12:35 PM FISHING INSTRUCTOR documented as of this encounter Visit Diagnoses Not on filedocumented in this encounter Eye Exam Visual Acuity Right eye Left eye Near cc 20/20 20/20 Tonometry (Tonopen, 10:00 PM) Right eye Left eye Pressure 16 13 Pupils Pupils Dark Light APD Right eye PERRL 3 2.5 None Left eye PERRL 3 2.5 None Visual Pindea (Counting fingers) Right eye Left eye Full Full Extraocular Movement Right eye Left eye Full, Ortho Full, Ortho Dilation Both eyes: 1.0% Mydriacyl, 2 .5% Phenylephrine @ 10:00 PM External Exam Right eye Left eye External Normal Normal Slit Lamp Exam Right eye Left eye Lids/Lashes Normal Normal Conjunctiva/Sclera White and quiet Mild temporal injection Cornea Clear Clear Anterior Chamber Deep and quiet Deep and quiet Iris Round and reactive Round and tank ctive Lens NS NS Vitreous Normal Jaime's positiv e. Vit heme Fundus Exam Right eye Left eye Disc Normal Normal C/D Ratio 0.1 0.1 Macula Normal Normal Vessels Normal Normal Periphery Normal. Inferior lat pippa. No RT\RD on LAST MARKER. 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 Inferior vit heme obscuring view. 2 horseshoe tears at 3:00 periphery, with an inferior ring of sub-hyaloid heme, with attached vitreous. Trace subretinal fluid below tears. Possible avulsion of vitreous base vs small retinal dialysis further anteriorly at 3:00. Patchy hazy view left eye (OS) due to vitreous (vit) heme. Retina grossly normal except for retinaltears in temporal periphery. Care Teams Analog Ic Design Architect Relationship Specialty Start Date End Date No, Physician PCP - General 10/20/18 12/19/19 Anastasiya Mueller MD PCP - General Internal Medicine 12/20/19 03/04/21 Clemencia Tovar MD [address] [place] [address] [place] [address] PCP - General Internal Medicine 03/05/21 No, Physician 12/20/19 02/05/20 Chang Cifuentes, RUKHSANA Referring Physician Resolution Expert 10/20/18 Alpesh De Leon MD [address] [place] [address] [address] [facility] [place] [address] Referring Physician Cardiovascular Disease 03/20/18 Charli Holder MD [address] [place] [address] Surgeon Orthopedic Surgery 02/06/20 Cristhian Oliveros MD [address] [place] [address] [id number] [place] [address] Referring Physician Cardiothoracic Surgery 02/06/20 documented as of this encounter
--- OUTSIDE RECORDS SUMMARY | 2024-03-09 02:51 | XMS_ITS ---
Care Plan - [facility] Created on: March 09, 2024 TIARA BABB : 1960 Sex: Male Author Organization [facility] Address [address] [place] [address] Phone Care Team Providers Care Permit Technician Name Role Phone PATRICK ALBA DO [phone]
--- OUTSIDE RECORDS SUMMARY | 2024-03-09 02:51 | XMS_ITS | Encounter Summary ---
Author Organization [facility] Address [address] [place] [address] Phone Care Team Providers Care Preformer Impregnated Fabrics Name Role Phone Anastasiya Mueller MD Primary Care Provider [phone] No, Physician Unavailable Chang Cifuentes OD Unavailable [phone] Alpesh De Leon MD Unavailable [phone] Charli Holder MD Unavailable [phone] Cristhian Oliveros MD Unavailable [phone] Clemencia Tovar MD Primary Care Provider [phone] Encounter Details Date Type Department Care Team (Late st Contact Info) Description 01/30/2020 Orders Only [facility] [address] [place] [address] Scanning, Provider Social History Tobacco Use Types Packs/Day Years Used Date Smoking Tobacco: Never Smokeless Tobacco: Never Alcohol Use Standard Drinks/Week Comments Not Currently 0 (1 standard drink = 0.6 oz pur e alcohol) Sex and Gender Information Value Date Recorded Sex Assigned at Not on file Legal Sex Male 7:53 PM MANAGER TARGET Gender Identity Not on file Sexual Orientation Straight 03/03/2020 9: 48 AM MANAGER TARGET documented as of this encounter Plan of Treatment Upcoming Encounters Date Type Department Care Team (Late st Contact Info) Description 03/28/2024 12:35 PM MANAGER TARGET Hospital Encounter [facility] [address] [place] [address] Frank Walter MD [address] [place] [address] [address] [place] [address] 03/28/2024 12:35 PM MANAGER TARGET - 03/28/2024 1:05 PM MANAGER TARGET Surgery [facility] [address] [place] [address] Frank Walter MD [address] [place] [address] [address] [place] [address] COLONOSCOPY Scheduled Procedures Name Priority Associated Diagnoses Date/Ti me COLONOSCOPY Encounter for screening colonoscopy Personal history of colonic polyps Family history of colon cancer 03/28/2024 12:35 PM MANAGER TARGET documented as of this encounter Procedures Procedure Name Priority Date/Time Associated Diagnosis Comments SCAN - LABS 01/30/2020 documented in this encounter Results * SCAN - LABS (01/30/2020) Provider Scanning Final Result documented in this encounter Visit Diagnoses Not on filedocumented in this encounter Care Teams Preformer Impregnated Fabrics Relationship Specialty Start Date End Date Anastasiya Mueller MD PCP - General Internal Medicine 12/20/19 03/04/21 Clemencia Tovar MD [address] [place] [address] [place] [address] PCP - General Internal Medicine 03/05/21 No, Physician 12/20/19 02/05/20 Chang Cifuentes, OD Referring Physician Customer Development Representative 10/20/18 Alpesh De Leon MD [address] [place] [address] [address] [address] Referring Physician Cardiovascular Disease 03/20/18 Charli Holder MD [address] [place] [address] Surgeon Orthopedic Surgery 02/06/20 Cristhian Oliveros MD [address] [place] [address] [place] [address] Referring Physician Cardiothoracic Surgery 02/06/20 documented as of this encounter
--- OUTSIDE RECORDS SUMMARY | 2024-03-09 02:51 | XMS_ITS ---
Author Organization [facility] Address [address] [place] [address] Phone Care Team Providers Care Athletic Equipment Manager Name Role Phone PATRICK ALBA DO [phone] Problems Includes: Active, inactive, and resolved Problems No Active Problems Plan of Treatment Findings Encounter Date Go to the emergency room if condition worsens WALK IN PATIENT - ESTABLISHED PT with CATALINA ROJO [facility]- 06/06/2022 Last Documented On 3 5:31PM ; [facility] Ordered disposition Discusse d etiology and course of atopic dermatitis. Discussed limiting bathing and using oily soaps. Also discussed need for lubrication of skin on a regular basis, with intermittent use of topical steroids or topical immune modulator creams WALK IN PATIENT - ESTABLISHED PT with CATALINA ROJO [facility]- 06/06/2022 Last Documented On 3 5:31PM ; [facility] Ordered follow-up visit as n eeded with an office visit. WALK IN PATIENT - ESTABLISHED PT with CATALINA ROJO [facility]- 06/06/2022 Last Documented On 3 5:31PM ; [facility] Ordered return to the clinic if condition worsens or new symptoms arise WALK IN PATIENT - ESTABLISHED PT with CATALINA ROJO [facility]- 06/06/2022 Last Documented On 3 5:31PM ; [facility] IV hydration RUQ sonogram - if normal would start full liquid diet and if tolerated advance CONSULTATION - NEW PATIENT with ADELFO SANCHEZ DO 04/29/2022 Last Documented On 3 10:07AM ; [facility] Instructions to patient Go to the emergency room if condition worsens Last Documented On 3 5:25PM ; [facility] Watch for signs/symptoms of infection, return to the clinic if seen Last Documented On 3 5:25PM ; [facility] Assessments Includes: Assessments for all patient encounters Findings Encounter Date Cellulitis of the abdominal wall WALK IN PATIENT - ESTABLISHED PT with CATALINA NAJERA 06/06/2022 Last Documented On 3 5:31PM ; [facility] Acute Gastritis with dehydration CONSULT ATION - NEW PATIENT with ADELFO Britney SANCHEZ DO 04/29/2022 Last Documented On 3 10:07AM ; [facility] Instructions Includes: Instructions for all patient encounters Instructions to patient Go to the emergency room if condition worsens Last Documented On 3 5:25PM ; [facility] Watch for signs/symptoms of infection, return to the clinic if seen Last Documented On 3 5:25PM ; [facility] Medical Equipment - Implanted Devices Includes: Current and historical Devices No Medical Equipment Recorded Medications Includes: Current and historical Medications Current Medications (continue as prescribed) Doxycycline Hyclate 100 MG Oral Capsule 06/06/2022 Provider: CATALINA NAJERA Diagnosis: Cellulitis of tr unk, unspecified 1 CAPSULE TWO TIMES A DAY Last Documented On 3 5:29PM By CATALINA NAJERA ; [facility] Medications Administered Includes: Administered Medications in patient's chart No Administered Medications Recorded Results Includes: Results from 03/09/2023 through 03/09/2024 No Results Recorded For Specified Dates History of Present Illness History of Present Illness not supported for this document type No History of Present Illness Recorded Social History Description Last Updated Tobacco non-user 06/06/2022 Last Documented On 3 5:31PM ; [facility] Smoking Status Unknown Medical History Includes: Medical [...] Effect michel Dates 1 - [facility] [phone] TIARA ariza Clinical Notes Includes: Signed Clinical Notes starting from 03/05/2022 No Clinical Notes Recorded
--- OUTSIDE RECORDS SUMMARY | 2024-03-09 02:51 | XMS_ITS | Clinical Summary ---
Author Organization [facility] [address] Address [address] [employer] [place] [address] Phone Care Team Providers Care Sensory Scientist Name Role Phone Chang Cifuentes OD Unavailable [phone] Alpesh De Leon MD Unavailable [phone] Charli Holder MD Unavailable [phone] Cristhian Oliveros MD Unavailable [phone] Clemencia Tovar MD Primary Care Provider [phone] Allergies Active Allergy Reactions Criticality Noted Date Comments Iodine Flushing (skin) Low 10/20/2018 Medications ENTRESTO 24-26 mg tabletIndication s:chronic heart failure Take 1 tablet by mouth 2 (two) times a day 11 9 Active torsemide (DEMADEX) 20 mg tabletIndication s:Edema Take 1 tablet (20 mg total) by mouth daily 3 9 Active multivitamin-Ca- iron-minerals tabletIndication s:Vitamin Deficiency Prevention Take 1 tablet by mouth early childhood coordinator before breakfast Active NON FORMULARY, FOR CLINIC ADMINISTERED MEDICATIONS ONLY, (not in database) Take 1 each by mouth once Gamma E Active carvediloL (COREG) 12.5 mg tabletIndication s:hypertension Take 1 tablet (12.5 mg total) by mouth 2 (two) times a day 0 Active potassium chloride ER 20 mEq CR tablet Take 2 tablets (40 mEq total) by mouth early childhood coordinator before breakfast 0 Active sildenafiL (VIAGRA) 100 [...] 1 capsule (60 mg total) by mouth early childhood coordinator before breakfast 2 Active acetaminophen 500 mg [...] (01/27/2022): Added automatically from request for surgery [id number] Retinal scar of left eye 10/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 10/22/2021 Age-related nuclear cataract of both eyes 2021 Screen for colon cancer 03/10/2020 Overview (03/10/2020): Added automatically from request for surgery [id number] Family history of colon cancer 03/10/2020 Overview (03/10/2020): Added automatically from request for surgery [id number] Abuse of dietary supplements 03/10/2020 Overview (03/10/2020): Following supplements should be eliminated if you will possibly consider that March 10, 2020 DHEA L glutamine L arginine Gamma E complex Lactobacillus Amino 1000 Calcium citrate Probiotic 50 A triple magnesium powder Super enzymes Milk thistle extract Ascorbic acid vitamin-C Allowed supple months = multi vitamin, fish oil he states is advised by his beader tender, Co Q10 Hx of colonic polyps 03/10/2020 Overview (03/12/2020): Added automatically from request for surgery [id number] Hx of adenomatous colonic polyps 03/08/2020 Overview (03/08/2020): (+) Dr. Smith in [facility] polyps x3 tubular adenoma [...] thyroidectomy radiation therapy June 2015 Dr. Thakur, [facility] Retinal tear, left 10/22/2018 Overview (10/22/2018): Status [...] precautions discussed with patient. Keep HOBE. Repeat DFE/OR NURSE MANAGER 11/01 in [facility]. Coronavirus infection 03/21/2018 Overview (02/06/2020): Hospitalized in [facility] with kidney failure heart failure intestinal blockage loss of consciousness related to this virus Immunizations Name Administration Dates Next Due Pneumococcal Polysaccharide PPV23 02/06/2020 Tdap 02/06/2020 Surgical History Surgery Date Site/Laterality Comments [place] PROPH RETINAL DTCHMNT W/O DRG PHOTOCOAGULATION 10/21/2018 Retinal detachment surgery [facility] SURGERY 02/14/1990 - 03/16/[address] Holder CORONARY ARTERY BYPASS GRAFT 12/15/2018 - 01/13/2019 Dr. Glen Oliveros: Four-vessel bypass [facility] REPLACEMENT TOTAL HIP LATERA L POSITION 12/15/2013 - 01/13/[address] Stone, [facility] COLONOSCOPY 02/25/2017 (+) Dr. Smith in [facility] polyps x3 tubular adenoma [...] on file Legal Sex Male 7:53 PM FINGER COBBLER Gender Identity Not on file Sexual Orientation Straight 03/03/2020 9: 48 AM FINGER COBBLER Occupation Industry Job Start Date Job End Date semi retired Not on file Not on file Not on file Obstetrics History Last Filed Vital Signs Vital Sign Reading Time Taken Comments Blood Pressure 104/63 09/26/2023 1:38 PM CDT Pulse 76 09/26/2023 1:38 PM CDT Temperature 36.6 ??C (97.8 ??F) 09/26/2023 1:38 PM CD T Respiratory Rate 18 03/10/2022 8:53 AM FINGER COBBLER Oxygen Saturation 97% 03/10/2022 8:53 AM FINGER COBBLER Inhaled Oxygen Concentration - - Weight 112.9 kg (249 lb) 09/26/2023 1:38 PM CDT Height 180.3 cm (5' 11 ) 09/26/2023 1:38 PM CDT Body Mass Index 34.73 09/26/2023 1:38 PM CDT Plan of Treatment Upcoming Encounters Date Type Department Care Team (Late st Contact Info) Description 03/28/2024 12:35 PM FINGER COBBLER Hospital Encounter [address] [address] Frank Walter MD [address] [place] [address] [place] [address] 03/28/2024 12:35 PM FINGER COBBLER - 03/28/2024 1:05 PM FINGER COBBLER Surgery [address] [address] Frank Walter MD [address] [place] [address] [place] [address] COLONOSCOPY Scheduled Procedures Name Priority Associated Diagnoses Date/Ti me COLONOSCOPY Encounter for screening colonoscopy Personal history of colonic polyps Family history of colon cancer 03/28/2024 12:35 PM FINGER COBBLER Health Maintenance Due Date Last Done Comments [...] 01/14, 06/02/2020 Medical Devices Implanted Type Area Upholstery Instructor Device Identifier Shelf Expiration Date Model / Serial / Lot [employer] Attune Cruciate Retain Cementless Knee Left 6 Component Femoral [id number] - [id number] Implanted:Qty: 1 on 03/09/2022 by Srinivas Walker MD at [facility] [employer] [id number] 08/13/2030 [id number] / / [id number] [employer] Attune Fb Tib Base Sz 6 Por [id number] - [id number] Implanted:Qty: 1 on 03/09/2022 by Srinivas Walker MD at [facility] Left: Knee [employer] 10/15/2031 [id number] / / [id number] [employer] Insert Attune Left Medial Stabilized Size 6 5mm [id number] - [id number] Implanted:Qty: 1 on 03/09/2022 by Srinivas Walker MD at [facility] Left: Knee [employer] 09/13/2029 [id number] / / [id number] Procedures Procedure Name Priority Date/Time Associated Diagnosis Comments COLONOSCOPY 01/25/2022 7:46 AM FINGER COBBLER PSA SCREEN Routine 03/03/2020 10:54 AM FINGER COBBLER Prostate cancer screening from Last 3 Months or Most Recently Relevant to Health Maintenance Results * COLONOSCOPY (01/25/2022 7:46 AM FINGER COBBLER) Anatomical Region Laterality Modality Other Narrative Procedure Note Frank Walter MD - 01/25/2022 7:46 AM CST [facility] Patient Name: Yonathan Joseph Procedure Date: 01/25/2022 7:46 AM Date of : 1960 Admit Type: Outpatient Age: 61 Gender: Male Attending MD: Frank Walter M.D. Room: [facility] ENDOSCOPY ROOM 1 Note Status: Finalized Patient [...] under direct vision. The Pediatric Colonoscope PCF-H190L [id number] was introducedthrough the anus and advanced to [...] 7:46 AM Procedure Code(s): --- Professional --- 65849, Colonoscopy, flexible; diagnostic, including collection of specimen(s) by brushing or washing, when performed (separateprocedure) Diagnosis Code(s): --- Professional --- Z80.0, Family history of malignant neoplasm of digestive organs Z86.010, Personal history of colonic polyps K64.8, Other hemorrhoids CPT copyright 2020 [employer]. All rights reserved. The codes documented in this report are preliminary and upon kiln repairer reviewmay be revised to meet current compliance requirements. Recognized by the [employer] for promoting quality in endoscopy us Frank Walter MD ENDOSCOPY PROCEDURES Final Result * PSA screen (03/03/2020 10:54 AM FINGER COBBLER) PSA-Total 0.76 <=3.90 ng/mL [facility] Comment: Interpretive Data ?AGE ? SEX ?REFERENCE INTERVAL 0 minutes-150 years ?Female ?None 0 minutes-49 years ? Male ?None ? 50-59 years ? Male ?0-3.90 ? 60-69 years ? Male ?0-5.40 ? 70-79 years ? Male ?0-6.20 ? 80-150 years ?Male ?0-6.20 Current interpretive data last revised 2018. Blood specimen (specimen) 03/03/2020 10:54 AM FINGER COBBLER 03/03/2020 6:40 PM FINGER COBBLER us Anastasiya Mueller MD LAB BLOOD ORDERABLES Final Result [facility] [address] Department [place] [address] from Last 3 Months or Most Recently Relevant to Health Maintenance Insurance [place] [address] MED[employer] SOLUTIONS [place] [address] [place]CR HMO REF [place] [address] MED[employer]ARE [employer]UT[employer] Advance Directives For more information, please contact: [phone] Documents on File Type Date Recorded Patient Beaming Inspector Expl anation ADVANCE DIRECTIVE 02/06/2020 POWER OF [...] 11:45 AM 06/02/2020 6:56 PM Care Teams Sensory Scientist Relationship Specialty Start Date End Date Clemencia Tovar MD [address] [place] [address] [address] [place] [address] PCP - General Internal Medicine 03/05/21 Chang Cifuentes, OD Referring Physician Case Briefer 10/20/18 Alpesh De Leon MD [address] [place] [address] [address] [place] [address] Referring Physician Cardiovascular Disease 03/20/18 Charli Holder MD [address] [place] [address] Surgeon Orthopedic Surgery 02/06/20 Cristhian Oliveros MD [address] [place] [address] [address] [place] [address] Referring Physician Cardiothoracic Surgery 02/06/20
--- OUTSIDE RECORDS SUMMARY | 2024-03-09 02:51 | XMS_ITS | Referral Summary ---
Author Organization [facility] [address] Address [address] [place] [address] Phone Care Team Providers Care Security Supervisor Name Role Phone Chang Cifuentes OD Unavailable [phone] Alpesh De Leon MD Unavailable [phone] Charli Holder MD Unavailable [phone] Cristhian Oliveros MD Unavailable [phone] Clemencia Tovar MD Primary Care Provider [phone] Allergies Active Allergy Reactions Criticality Noted Date Comments Iodine Flushing (skin) Low 10/20/2018 Medications ENTRESTO 24-26 mg tabletIndication s:chronic heart failure Take 1 tablet by mouth 2 (two) times a day 11 9 Active torsemide (DEMADEX) 20 mg tabletIndication s:Edema Take 1 tablet (20 mg total) by mouth daily 3 9 Active multivitamin-Ca- iron-minerals tabletIndication s:Vitamin Deficiency Prevention Take 1 tablet by mouth certified travel counselor before breakfast Active NON FORMULARY, FOR CLINIC ADMINISTERED MEDICATIONS ONLY, (not in database) Take 1 each by mouth once Gamma E Active carvediloL (COREG) 12.5 mg tabletIndication s:hypertension Take 1 tablet (12.5 mg total) by mouth 2 (two) times a day 0 Active potassium chloride ER 20 mEq CR tablet Take 2 tablets (40 mEq total) by mouth certified travel counselor before breakfast 0 Active sildenafiL (VIAGRA) 100 [...] 1 capsule (60 mg total) by mouth certified travel counselor before breakfast 2 Active acetaminophen 500 mg [...] (01/27/2022): Added automatically from request for surgery [id number] Retinal scar of left eye 10/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 10/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 Age-related nuclear cataract of both eyes 2021 Screen for colon cancer 03/10/2020 Overview (03/10/2020): Added automatically from request for surgery [id number] Family history of colon cancer 03/10/2020 Overview (03/10/2020): Added automatically from request for surgery [id number] Abuse of dietary supplements 03/10/2020 Overview (03/10/2020): Following supplements should be eliminated if you will possibly consider that March 10, 2020 DHEA L glutamine L arginine Gamma E complex Lactobacillus Amino 1000 Calcium citrate Probiotic 50 A triple magnesium powder Super enzymes Milk thistle extract Ascorbic acid vitamin-C Allowed supple months = multi vitamin, fish oil he states is advised by his compensation programs manager, Co Q10 Hx of colonic polyps 03/10/2020 Overview (03/12/2020): Added automatically from request for surgery [id number] Hx of adenomatous colonic polyps 03/08/2020 Overview (03/08/2020): (+) Dr. Smith in [facility] polyps x3 tubular adenoma due in 3 [...] thyroidectomy radiation therapy June 2015 Dr. Thakur, [facility] Retinal tear, left 10/22/2018 Overview (10/22/2018): Status [...] precautions discussed with patient. Keep HOBE. 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 Coronavirus infection 03/21/2018 Overview (02/06/2020): Hospitalized in [facility] with kidney failure heart failure intestinal blockage [...] on file Legal Sex Male 7:53 PM WOOD HACKER Gender Identity Not on file Sexual Orientation Straight 03/03/2020 9: 48 AM WOOD HACKER Occupation Industry Job Start Date Job End Date semi retired Not on file Not on file Not on file Last Filed Vital Signs Vital Sign Reading Time Taken Comments Blood Pressure 104/63 09/26/2023 1:38 PM CDT Pulse 76 09/26/2023 1:38 PM CDT Temperature 36.6 ??C (97.8 ??F) 09/26/2023 1:38 PM CD T Respiratory Rate 18 03/10/2022 8:53 AM WOOD HACKER Oxygen Saturation 97% 03/10/2022 8:53 AM WOOD HACKER Inhaled Oxygen Concentration - - Weight 112.9 kg (249 lb) 09/26/2023 1:38 PM CDT Height 180.3 cm (5' 11 ) 09/26/2023 1:38 PM CDT Body Mass Index 34.73 09/26/2023 1:38 PM CDT Plan of Treatment Upcoming Encounters Date Type Department Care Team (Late st Contact Info) Description 03/28/2024 12:35 PM WOOD HACKER Hospital Encounter [address] [address] Frank Walter MD [address] [facility] [place] [address] 03/28/2024 12:35 PM WOOD HACKER - 03/28/2024 1:05 PM WOOD HACKER Surgery [address] [address] Frank Walter MD [address] [facility] [place] [address] COLONOSCOPY Scheduled Procedures Name Priority Associated Diagnoses Date/Ti me COLONOSCOPY Encounter for screening colonoscopy Personal history of colonic polyps Family history of colon cancer 03/28/2024 12:35 PM WOOD HACKER Medical Devices Implanted Type Area Embroidery Cutter Device Identifier Shelf Expiration Date Model / Serial / Lot [employer] Attune Cruciate Retain Cementless Knee Left 6 Component Femoral [id number] - [id number] Implanted:Qty: 1 on 03/09/2022 by Srinivas Walker MD at [facility] [employer] [id number] 08/13/2030 [id number] / / [id number] [employer] Attune Fb Tib Base Sz 6 Por [id number] - [id number] Implanted:Qty: 1 on 03/09/2022 by Srinivas Walker MD at [facility] Left: Knee [employer] 10/15/2031 [id number] / / [id number] [employer] Insert Attune Left Medial Stabilized Size 6 5mm [id number] - [id number] Implanted:Qty: 1 on 03/09/2022 by Srinivas Walker MD at [facility] Left: Knee [employer] 09/13/2029 [id number] / / [id number] Procedures Procedure Name Priority Date/Time Associated Diagnosis Comments COLONOSCOPY 01/25/2022 7:46 AM WOOD HACKER PSA SCREEN Routine 03/03/2020 10:54 AM WOOD HACKER Prostate cancer screening from Last 3 Months or Most Recently Relevant to Health Maintenance Results * COLONOSCOPY (01/25/2022 7:46 AM WOOD HACKER) Anatomical Region Laterality Modality Other Narrative Procedure Note Frank Walter MD - 01/25/2022 7:[address] [facility] Patient Name: Yonathan Joseph Procedure Date: 01/25/2022 7:46 AM Date of : 1960 Admit Type: Outpatient Age: 61 Gender: Male Attending MD: Frank Walter M.D. Room: [facility] 1 Note Status: Finalized Patient [...] under direct vision. The Pediatric Colonoscope PCF-H190L [id number] was introducedthrough the anus and advanced to [...] 7:46 AM Procedure Code(s): --- Professional --- 17733, Colonoscopy, flexible; diagnostic, including collection of specimen(s) by brushing or washing, when performed (separateprocedure) Diagnosis Code(s): --- Professional --- Z80.0, Family history of malignant neoplasm of digestive organs Z86.010, Personal history of colonic polyps K64.8, Other hemorrhoids CPT copyright 2020 [employer]. All rights reserved. The codes documented in this report are preliminary and upon cable weaver reviewmay be revised to meet current compliance requirements. Recognized by the [place] [employer] for promoting quality in endoscopy us Frank Walter MD ENDOSCOPY PROCEDURES Final Result * PSA screen (03/03/2020 10:54 AM WOOD HACKER) PSA-Total 0.76 <=3.90 ng/mL SMITA GUILLERMO Comment: Interpretive Data ?AGE ? SEX ?REFERENCE INTERVAL 0 minutes-150 years ?Female ?None 0 minutes-49 years ? Male ?None ? 50-59 years ? Male ?0-3.90 ? 60-69 years ? Male ?0-5.40 ? 70-79 years ? Male ?0-6.20 ? 80-150 years ?Male ?0-6.20 Current interpretive data last revised 2018. Blood specimen (specimen) 03/03/2020 10:54 AM WOOD HACKER 03/03/2020 6:40 PM WOOD HACKER us Anastasiya Mueller MD LAB BLOOD ORDERABLES Final Result Performing Organization Address City/State/[facility] Co de Phone Number SMITA GUILLERMO [address] [place] [address] from Last 3 Months or Most Recently Relevant to Health Maintenance Insurance MEDICARE SOLUTIONS WILLIE [address] [place] HMO REF [place] [id number] MEDICARE SOLUTIONS Advance Directives For more information, please contact: [phone] Documents on File Type Date Recorded Patient Patient Scheduler Expl anation ADVANCE DIRECTIVE 02/06/2020 POWER OF [...] 11:45 AM 06/02/2020 6:56 PM Care Teams Security Supervisor Relationship Specialty Start Date End Date Clemencia Tovar MD [address] [place] [address] DR ENRIQUEZ [address] [place], [place] [address] [address] PCP - General Internal Medicine 03/05/21 Chang Cifuentes, OD Referring Physician Picture Engraver 10/20/18 Alpesh De Leon MD [address] [place] [address] DR ENRIQUEZ [address] [place] [address] Referring Physician Cardiovascular Disease 03/20/18 Charli Holder MD [address] ENRIQUEZ [address] [place] [address] Surgeon Orthopedic Surgery 02/06/20 Cristhian Oliveros MD [address] [place] [address] [address] [place] [address] Referring Physician Cardiothoracic Surgery 02/06/20
--- OUTSIDE RECORDS SUMMARY | 2024-03-09 02:51 | XMS_ITS | Encounter Summary ---
[facility] Address [address] [place] [address] Phone Care Team Providers Care Hvac Operations Technician Name Role Phone No, Physician Primary Care Provider [phone] Anastasiya Mueller MD Primary Care Provider [phone] No, Physician Unavailable Chang Cifuentes OD Unavailable [phone] Alpesh De Leon MD Unavailable [phone] Charli Holder MD Unavailable [phone] Cristhian Oliveros MD Unavailable [phone] Clemencia Tovar MD Primary Care Provider [phone] Encounter Details Date Type Department Care Team (Late st Contact Info) Description 02/25/2017 Orders Only [facility] [address] [place] [address] Scanning, Provider Social History Tobacco Use Types Packs/Day Years Used Date Smoking Tobacco: Never Assessed Sex and Gender Information Value Date Recorded Sex Assigned at Not on file Legal Sex Male 7:53 PM CLINICAL INFORMATICS PHYSICIAN Gender Identity Not on file Sexual Orientation Straight 03/03/2020 9: 48 AM CLINICAL INFORMATICS PHYSICIAN documented as of this encounter Plan of Treatment Upcoming Encounters Date Type Department Care Team (Late st Contact Info) Description 03/28/2024 12:35 PM CLINICAL INFORMATICS PHYSICIAN Hospital Encounter [facility] [address] [place] [address] Frank Walter MD [address] [place] [address] 03/28/2024 12:35 PM CLINICAL INFORMATICS PHYSICIAN - 03/28/2024 1:05 PM CLINICAL INFORMATICS PHYSICIAN Surgery [facility] [address] [place] [address] Frank Walter MD [address] [place] [address] [address] [place] [address] COLONOSCOPY Scheduled Procedures Name Priority Associated Diagnoses Date/Ti me COLONOSCOPY Encounter for screening colonoscopy Personal history of colonic polyps Family history of colon cancer 03/28/2024 12:35 PM CLINICAL INFORMATICS PHYSICIAN documented as of this encounter Procedures Procedure Name Priority Date/Time Associated Diagnosis Comments GI - RESULT 02/25/2017 documented in this encounter Results * GI - RESULT (02/25/2017) Anatomical Region Laterality Modality Other us Provider Scanning Final Result documented in this encounter Visit Diagnoses Not on filedocumented in this encounter Care Teams Hvac Operations Technician Relationship Specialty Start Date End Date No, Physician PCP - General 10/20/18 12/19/19 Anastasiya Mueller MD PCP - General Internal Medicine 12/20/19 03/04/21 Clemencia Tovar MD [address] [place] [address] DR [place]RIQUEZ [facility] [id number] PCP - General Internal Medicine 03/05/21 No, Physician 12/20/19 02/05/20 Chang Cifuentes, RUKHSANA Referring Physician Boring Machine Operator Double End 10/20/18 Alpesh De Leon MD [address] [place] [address] MARY [place]ARTINEZ [id number] Referring Physician Cardiovascular Disease 03/20/18 Charli Holder MD [address] ENRIQUEZ [address] [place] [address] Surgeon Orthopedic Surgery 02/06/20 Cristhian Oliveros MD [address] [place] [address] Referring Physician Cardiothoracic Surgery 02/06/20 documented as of this encounter
--- OUTSIDE RECORDS SUMMARY | 2024-03-09 02:51 | XMS_ITS | Encounter Summary ---
Author [facility] [address] [place] [address] Phone Care Team Providers Care Tool Grinding Machine Operator Name Role Phone No, Physician Primary Care Provider [phone] Anastasiya Mueller MD Primary Care Provider [phone] No, Physician Unavailable Chang Cifuentes OD Unavailable [phone] Alpesh De Leon MD Unavailable [phone] Charli Holder MD Unavailable [phone] Cristhian Oliveros MD Unavailable [phone] Clemencia Tovar MD Primary Care Provider [phone] Encounter Details Date Type Department Care Team (Late st Contact Info) Description 01/14/2017 Orders Only [facility] [address] [place] [address] Scanning, Provider Social History Tobacco Use Types Packs/Day Years Used Date Smoking Tobacco: Never Assessed Sex and Gender Information Value Date Recorded Sex Assigned at Not on file Legal Sex Male 7:53 PM BOBBIN TRUCKER Gender Identity Not on file Sexual Orientation Straight 03/03/2020 9: 48 AM BOBBIN TRUCKER documented as of this encounter Plan of Treatment Upcoming Encounters Date Type Department Care Team (Late st Contact Info) Description 03/28/2024 12:35 PM BOBBIN TRUCKER Hospital Encounter [facility] 1 [place] [address] Frank Walter MD [address] [place] [address] 03/28/2024 12:35 PM BOBBIN TRUCKER - 03/28/2024 1:05 PM BOBBIN TRUCKER Surgery [facility] 1 [place] [address] Frank Walter MD [address] [place] [address] [address] [place] [address] COLONOSCOPY Scheduled Procedures Name Priority Associated Diagnoses Date/Ti me COLONOSCOPY Encounter for screening colonoscopy Personal history of colonic polyps Family history of colon cancer 03/28/2024 12:35 PM BOBBIN TRUCKER documented as of this encounter Procedures Procedure Name Priority Date/Time Associated Diagnosis Comments GI - RESULT 01/14/2017 documented in this encounter Results * GI - RESULT (01/14/2017) Anatomical Region Laterality Modality Other us Provider Scanning Final Result documented in this encounter Visit Diagnoses Not on filedocumented in this encounter Care Teams Tool Grinding Machine Operator Relationship Specialty Start Date End Date No, Physician PCP - General 10/20/18 12/19/19 Anastasiya Mueller MD PCP - General Internal Medicine 12/20/19 03/04/21 Clemencia Tovar MD [address] [place] [address] [place] [id number] PCP - General Internal Medicine 03/05/21 No, Physician 12/20/19 02/05/20 Chang Cifuentes, RUKHSANA Referring Physician Vice President Of Talent Acquisition 10/20/18 Alpesh De Leon MD [address] [place] [address] MARY [place]ARTINEZ [id number] Referring Physician Cardiovascular Disease 03/20/18 Charli Holder MD [address] ENRIQEUZ [address] [place] [address] Surgeon Orthopedic Surgery 02/06/20 Cristhian Oliveros MD [address] [place] [address] Referring Physician Cardiothoracic Surgery 02/06/20 documented as of this encounter
--- OUTSIDE RECORDS SUMMARY | 2024-03-09 02:51 | XMS_ITS | Clinical Summary ---
Author Organization [facility] Address [address] [place] [address] Phone Care Team Providers Care Space And Storage Clerk Name Role Phone PATRICK ALBA DO [phone] Reason for Visit and Chief [...] - Last Documented On 06/06/2022 5:31PM ; [facility] - Go to the emergency room if condition worsens - Last Documented On 06/06/2022 5:31PM ; [facility] - Disposition Discussed etiology and course of atopic dermatitis. Discussed limiting bathing and using oily soaps. Also discussed need for lubrication of skin on a regular basis, with intermittent use of topical steroids or topical immune modulator creams - Last Documented On 06/06/2022 5:31PM ; [facility] - Follow-up visit as needed with an office visit. - Last Documented On 06/06/2022 5:31PM ; [facility] Instructions to patient Go to the emergency room if condition worsens Last Documented On 3 5:25PM ; [facility] Watch for signs/symptoms of infection, return to the clinic if seen Last Documented On 3 5:25PM ; [facility] Assessments Includes: Assessments from this encounter Findings - Cellulitis of the abdominal wall - Last Documented On 06/06/2022 5:31PM ; [facility] Instructions Includes: Instructions from this encounter Instructions to patient Go to the emergency room if condition worsens Last Documented On 3 5:25PM ; [facility] Watch for signs/symptoms of infection, return to the clinic if seen Last Documented On 3 5:25PM ; [facility] Medical Equipment - Implanted Devices Includes: Current Devices No Medical Equipment Recorded Medications Includes: Medications discussed during this encounter and other current Medications New / Renewed during this visit CATALINA NAJERA on 06/06/2022 Doxycycline Hyclate 100 MG Oral Capsule Provider: CATALINA NAJERA 14 day supply: 28 capsule, 0 refills Diagnosis: Cellulitis of trunk, unspecified 1 CAPSULE TWO TIMES A DAY [facility] - [address] [place] [address], [id number] - Last Documented On 3 5:29PM By CATALINA NAJERA ; [facility] Medications Administered Includes: Administered Medications from this encounter No Administered Medications Recorded Vital Signs Includes: Vital Signs from this encounter Vital Name 06/06/2022 04:59P Blood Pressure Sitting (mmHg) 126/688 Pulse Rate-Sitting (bpm) 86 Temp-Oral (F) 98.4 Weight (lb) 245 Oxygen Saturation (%) 95 Last Documented: On 06/06/2022 5:01PM ; [facility] Results Includes: Results discussed during [...] 06/06/2022 Last Documented On 3 5:31PM ; [facility] Smoking Status Unknown Procedures and Surgical History Includes: Procedures from this encounter Procedures Code Diagnosis Performing Provider Service L ocation Service Date the options include close observation Last Documented On 3 5:25PM ; [facility] watch for signs/symptoms of infection, r eturn to the clinic if seen Last Documented On 3 5:25PM ; [facility] Pt to use prescription as ordered. Purpo se of and use of medication discussed.~ Last Documented On 3 5:25PM ; [facility] plan of care reviewed and agreed to by t he patient Last Documented On 3 5:24PM ; [facility] review of medications documented 1160F Last Documented On 3 5:01PM ; [facility] Clinical summary provided to patient Last Documented On 3 5:25PM ; [facility] Medical History Includes: Medical History [...] IN PATIENT - ESTABLISHED PT CATALINA NAJERA [facility] 06/07/19 23 4:52PM 5:20PM Cellulitis of the Abdominal Wall Insurance Includes: Active Insurance Policies Plan Name Member ID Group # Subscriber Relationship Effect michel Dates 1 - [facility] [id number] TIARA Connors f Clinical Notes Includes: Clinical Notes from this encounter * Progress note Date Encounter Last Documented by 06/06/2022 WALK IN PATIENT - ESTABLISHED PT Last documented on 06/06/2022; 5:31 PM, CATALINA NAJERA; [facility] Active Problems & Conditions - No Active [...]
--- OUTSIDE RECORDS SUMMARY | 2024-03-09 02:51 | XMS_ITS | Clinical Summary ---
Author Organization [facility] Address [address] [place] [address] Phone Care Team Providers Care Historiography Teacher Name Role Phone PATRICK ALBA DO [phone] Reason for Visit and Chief Complaint CONSULTATION - NEW PATIENT Problems Includes: Problems addressed during this encounter and other active Problems No Active Problems Plan of Treatment IV hydration RUQ sonogram - if normal would start full liquid diet and if tolerated advance. - Last Documented On 04/29/2022 10:07AM ; [facility] Assessments Includes: Assessments from this encounter Findings Acute Gastritis with dehydration. - Last Documented On 04/29/2022 10:07AM ; [facility] Medical Equipment - Implanted Devices Includes: Current Devices No Medical Equipment Recorded Medications Includes: Medications discussed during this encounter and other current Medications Current Medications (continue as prescribed) Doxycycline Hyclate 100 MG Oral Capsule 06/06/2022 Provider: CATALINA NAJERA Diagnosis: Cellulitis of tr unk, unspecified 1 CAPSULE TWO TIMES A DAY Last Documented On 3 5:29PM By CATALINA NAJERA ; [facility] Medications Administered Includes: Administered Medications from [...] worked out. After that, he went to [employer] and ate a day old hamburger. He [...] radiologist Last Documented On 3 10:04AM ; [facility] Medical History Includes: Medical History [...] CONSULTATION - NEW PATIENT ADELFO SANCHEZ DO [facility] 04/30/19 23 9:58AM 11:59PM Assessment [use For S.o.a.p. Note Free Text] Insurance Includes: Active Insurance Policies Plan Name Member ID Group # Subscriber Relationship Effect michel Dates 1 - [facility] [id number] TIARA BABB Dory f Clinical Notes Includes: Clinical Notes from this encounter * Progress note Date Encounter Last Documented by 04/29/2022 CONSULTATION - NEW PATIENT Last documented on 04/29/2022; 10:07 AM, ADELFO SANCHEZ DO; [facility] History of Present Illness TIARA BABB is [...]
--- OUTSIDE RECORDS SUMMARY | 2024-03-09 02:51 | XMS_ITS | Encounter Summary ---
Author Organization [facility] Healthcare Address [address] [place] [address] Care Team Providers Care Carpentry Professional Name Role Phone No, Physician Primary Care Provider [phone] Anastasiya Mueller MD Primary Care Provider [phone] No, Physician Unavailable Chang Cifuentes OD Unavailable [phone] Alpesh De Leon MD Unavailable [phone] Charli Holder MD Unavailable [phone] Cristhian Oliveros MD Unavailable [phone] Clemencia Tovar MD Primary Care Provider [phone] Encounter Details Date Type Department Care Team (Latest Contact Info) Description 10/20/2018 Ophth Exam Ophthalmology Roberta Nunn MD [address] [place], [place] [id number] Social History Tobacco Use Types Packs/Day Years Used Date Smoking Tobacco: Never Alcohol Use Standard Drinks/Week Comments Not Currently 0 (1 standard drink = 0.6 oz pur e alcohol) Sex and Gender Information Value Date Recorded Sex Assigned at Not on file Legal Sex Male 7:53 PM [employer] Gender Identity Not on file Sexual Orientation Straight 03/03/2020 9: 48 AM [employer] COMP[employer] documented as of this encounter Plan of Treatment Upcoming Encounters Date Type Department Care Team (Late st Contact Info) Description 03/28/2024 12:35 PM [employer] Hospital Encounter [address] [address] Frank Walter MD [address] [place] [address] [address] [place] [address] 03/28/2024 12:35 PM [employer] - 03/28/2024 1:05 PM [employer] Surgery [facility] [address] [place] [address] Frank Walter MD [address] [place] [address] [address] [place] [address] COLONOSCOPY Scheduled Procedures Name Priority Associated Diagnoses Date/Ti mn COLONOSCOPY Encounter for screening colonoscopy Personal history of colonic polyps Family history of colon cancer 03/28/2024 12:35 PM [employer] documented as of this encounter Visit Diagnoses Not on filedocumented in this encounter Eye Exam Visual Acuity Right eye Left eye Near cc 20/20 20/20 Tonometry (Tonopen, 10:00 PM) Right eye Left eye Pressure 16 13 Pupils Pupils Dark Light APD Right eye PERRL 3 2.5 None Left eye PERRL 3 2.5 None Visual P[place] (Counting fingers) Right eye Left eye Full [...] Normal. Inferior lat pippa. No RT\RD on STOREROOM SUPERVISOR. 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 [...] for retinaltears in temporal periphery. Care Teams Carpentry Professional Relationship Specialty Start Date End Date No, Physician PCP - General 10/20/18 12/19/19 Anastasiya Mueller MD PCP - General Internal Medicine 12/20/19 03/04/21 Clemencia Tovar MD [address] [place] [address] [place] [address] PCP - General Internal Medicine 03/05/21 No, Physician 12/20/19 02/05/20 Chang Cifuentes, RUKHSANA Referring Physician Director Of Golf 10/20/18 Alpesh De Leon MD [address] [place] [address] [place] [address] Referring Physician Cardiovascular Disease 03/20/18 Charli Holder MD [address] [place] [id number] Surgeon Orthopedic Surgery 02/06/20 Cristhian Oliveros MD [address] [place] [address] [id number] [place] [address] Referring Physician Cardiothoracic Surgery 02/06/20 documented as of this encounter
== END 2024-03-07 18:02 | disposition home or self-care (01) ==
PROVIDERS: Emergency Provider Physician Assistant
DX: R51.9 Headache, unspecified (principal)
CPT/HCPCS: 36415; 70450; 80053; 85025; 85652; 86140; 96361; 96374; 96375; 99284; A9270; J1100; J1200; J1885; J2765; J7030